=== PATIENT | male | born 1965 | race Caucasian/White ===

== ENCOUNTER 2018-03-23 21:51 | Inpatient (IN) | payer OTHER ==
--- NOTE | 2018-03-23 22:08 | ER Document Report ---
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 Significant other at bedside states the patient has not wanted to come into the emergency department the last few days despite her wishes but today he was agreeable. Patient states that he has had significant weight loss recently. Patient has had a cough as well. (JOSSY PIERCE) - Related Data Allergies/Adverse Reactions: gabapentin Allergy (Verified 03/24/18 00:15) Past Medical History - General Information source: Patient - Social History Smoking Status: Current Every Day Smoker Cigarette use (# per day): Yes Frequency of alcohol use: None Drug Abuse: None Lives with: Family Family History: Reviewed & Not Pertinent <JOSSY PIERCE - Last Filed: 03/24/18 03:26> Review of Systems - Review of Systems Constitutional: See HPI, Chills, Fever, Weight loss EENT: No symptoms reported Cardiovascular: No symptoms reported Respiratory: See HPI, Cough, Short of breath Gastrointestinal: See HPI, Nausea, Vomiting Genitourinary: No symptoms reported Male Genitourinary: No symptoms reported Musculoskeletal: No symptoms reported Skin: No symptoms reported Hematologic/Lymphatic: No symptoms reported Neurological/Psychological: No symptoms reported -: Yes All other systems reviewed and negative <JOSSY PIERCE - Last Filed: 03/24/18 03:26> Physical Exam <JOSSY PIERCE - Last Filed: 03/24/18 03:26> <GROVER GRANADOS - Last Filed: 03/24/18 04:17> - Vital signs Vitals: Pulse Ox 94 03/23/18 22:10 - Notes Notes: PHYSICAL EXAM GENERAL: Alert, interacts well. Cachectic. HEAD: Normocephalic, atraumatic. EYES: Pupils equal, round, and reactive to light. Extraocular movements intact. ENT: Oral mucosa moist, tongue midline. NECK: Full range of motion. Supple. Trachea midline. LUNGS: Decreased air movement on the left. Trace expiratory wheezing anteriorly bilaterally. HEART: Regular rate and rhythm. No murmurs, gallops, or rubs. ABDOMEN: LUQ tenderness with palpation. Non-distended. Bowel sounds present in all 4 quadrants. No guarding, rigidity, or rebound. EXTREMITIES: Moves all 4 extremities spontaneously. No edema, radial and dorsalis pedis pulses 2/4 bilaterally. No cyanosis. NEUROLOGICAL: Alert and oriented x3. Normal speech. PSYCH: Normal affect, normal mood. SKIN: Warm, dry, normal turgor. No rashes or lesions noted. (JOSSY PIERCE) Correction to scribe exam patient is diaphoretic. (GROVER GRANADOS) Course - Laboratory Result Diagrams: 03/23/18 22:37 03/23/18 22:37 <JOSSY PIERCE - Last Filed: 03/24/18 03:26> - Laboratory Result Diagrams: 03/23/18 22:37 03/23/18 22:37 <GROVER GRANADOS - Last Filed: 03/24/18 04:17> - Re-evaluation Re-evalutation: 03/24/18 03:48 Initial chest x-ray is ordered based off of his symptoms, given the loculated pleural effusion, the cachexia and the underlying opacity which was not further clarified I am concerned for malignancy so CT scan of the chest abdomen and pelvis was ordered given the abnormal chest x-ray, smoking history and the abdominal pain. CT scan of chest abdomen pelvis reveals enlarged lymph nodes in the prevascular space, precarinal and subcarinal space, there is a large loculated left pleural effusion similar to what is seen on the chest x-ray in addition there is nodularity and minor inflammation associated with the pleural flat anteriorly there is also pleural-based nodule in the left upper lobe anteriorly and some other areas of mixed soft tissue density and fluid density lesions in the liver. This is concerning for malignancy in addition to pneumonia. 03/24/18 03:49 CBC reveals marked leukocytosis of 20.9.5, hemoglobin is anemic at 12.3, platelets elevated 868, coags slightly prolonged with an INR of 1.08, patient is actually slightly alkalotic with a venous pH of 7.53, chemistries reveal low potassium at 2.8, I did order 80 mEq of potassium for this IV, magnesium is slightly elevated at 2.4, calcium slightly low at 8.1, AST, ALT and alk phos are all moderately elevated, urinalysis does not show any signs of infection. I discussed this patient with Dr. Kunz who asked that I consult with surgery and oncology to make certain they were agreeable to taking care of this patient here. Dr. Paredes stated that the pleural effusion could likely be drained by radiology but if radiology could not do it surgery could do it and then I discussed with Dr. Luis who agreed that this patient could be's kept here to get tissue biopsies and pathology. Patient will be admitted to Dr. Kunz service on the telemetry care unit. Patient is already been started on Levaquin. 03/24/18 03:51 Patient does have an increased oxygen requirement from baseline, he is on 2 L nasal cannula at this time and is satting 92%. (GROVER GRANADOS) - Vital Signs Vital signs: Temp Pulse Resp BP Pulse Ox 98.1 F 28 H 114/73 92 03/24/18 02:00 03/24/18 04:01 03/24/18 04:01 03/24/18 04:01 - Laboratory Laboratory results interpreted by me: 03/23/18 03/23/18 03/23/18 22:37 22:37 22:37 WBC 29.5 H RBC 4.12 L Hgb 12.3 L Hct 35.6 L RDW 14.1 H Plt Count 868 H Seg Neuts % (Manual) 87 H Band Neutrophils % 1 L Lymphocytes % (Manual) 10 L Monocytes % (Manual) 1 L Abs Neuts (Manual) 26.0 H VBG pH 7.53 H Potassium 2.8 L* Chloride 95 L Creatinine 0.43 L Glucose 128 H POC Glucose Calcium 8.1 L Magnesium AST 143 H ALT 80 H Alkaline Phosphatase 291 H Albumin 3.0 L Urine Protein Urine Bilirubin Urine Urobilinogen 03/23/18 03/24/18 03/24/18 22:37 00:06 00:07 WBC RBC Hgb Hct RDW Plt Count Seg Neuts % (Manual) Band Neutrophils % Lymphocytes % (Manual) Monocytes % (Manual) Abs Neuts (Manual) VBG pH Potassium Chloride Creatinine Glucose POC Glucose 116 H Calcium Magnesium 2.4 H AST ALT Alkaline Phosphatase Albumin Urine Protein 100 H Urine Bilirubin SMALL H Urine Urobilinogen 4.0 H - EKG Interpretation by Me Additional EKG results interpreted by me: 03/24/18 03:51 EKG shows sinus tachycardia at a rate of 108, normal axis, normal intervals, no ST segment elevations or depressions, there is some T wave lead III per my interpretation. (GROVER GRANADOS) Critical Care Note - Critical Care Note Total time excluding time spent on procedures (mins): 35 <GROVER GRANADOS - Last Filed: 03/24/18 04:17> Discharge <JOSSY PIERCE - Last Filed: 03/24/18 03:26> - Discharge Admitting Provider: [facility] Admitted: Telemetry <GROVER GRANADOS - Last Filed: 03/24/18 04:17> - Discharge Clinical Impression: Loculated pleural effusion, Mass of left lung, Acute respiratory failure with hypoxia Left lower lobe pneumonia Qualifiers: Pneumonia type: due to unspecified organism Qualified Code(s): J18.1 - Lobar pneumonia, unspecified organism Condition: Serious Disposition: ADMITTED INPATIENT Referrals: LOCAL,NO [NO LOCAL MD] - Follow up as needed Scribe Attestation: 03/24/18 04:17 I personally performed the services described in the documentation, reviewed and edited the documentation which was dictated to the scribe in my presence, and it accurately records my words and actions. (GROVER GRANADOS)
[2018-03-23 23:05] LABS: VENOUS BLOOD BASE EXCESS 8.4 mmol/L; VENOUS BLOOD HCO3 31.7 mmol/L (20-32); VENOUS BLOOD PCO2 39.1 mmHg (35-63); VENOUS BLOOD PH 7.53 (7.30-7.42)
[2018-03-23 23:08] LABS: HEMATOCRIT 35.6 % (37.9-51.0); HEMOGLOBIN 12.3 g/dL (13.5-17.0); INTERNATIONAL RATION (INR) 1.08; MEAN CORPUSCULAR HEMOGLOBIN 29.7 pg (27.0-33.4); MEAN CORPUSCULAR HGB CONC 34.4 g/dL (32.0-36.0); MEAN CORPUSCULAR VOLUME 86 fl (80-97); PLATELET COUNT 868 10^3/uL (150-450); PROTHROMBIN TIME 14.5 SEC (11.4-15.4); RED BLOOD COUNT 4.12 10^6/uL (4.35-5.55); RED CELL DISTRIBUTION WIDTH 14.1 % (11.5-14.0); WHITE BLOOD COUNT 29.5 10^3/uL (4.0-10.5)
[2018-03-23 23:25] LABS: ABSOLUTE LYMPHOCYTES# (MANUAL) 3.2 10^3/uL (0.5-4.7); ABSOLUTE MONOCYTES # (MANUAL) 0.3 10^3/uL (0.1-1.4); BAND NEUTROPHILS % (MANUAL) 1 % (3-5); BASOPHILS % (MANUAL) 0 % (0-2); EOSINOPHILS % (MANUAL) 0 % (0-6); LYMPHOCYTES % (MANUAL) 10 % (13-45); MONOCYTES % (MANUAL) 1 % (3-13); SEGMENTED NEUTROPHILS % (MAN) 87 % (42-78); TOTAL CELLS COUNTED 100
[2018-03-23 23:27] LABS: PLATELET CLUMPS PRESENT; PLATELET COMMENT INCREASED; PLATELET LARGE PRESENT; RBC MORPHOLOGY COMMENT NORMO-CYTIC/CHROMIC; TOXIC GRANULATION 2+
[2018-03-23 23:31] LABS: ALANINE AMINOTRANSFERASE 80 U/L (21-72); ALKALINE PHOSPHATASE 291 U/L (38-126); ANION GAP 14 (5-19); ASPARTATE AMINO TRANSFERASE 143 U/L (17-59); BILIRUBIN,DIRECT 0.4 mg/dL (0.0-0.4); BILIRUBIN,TOTAL 0.5 mg/dL (0.2-1.3); BLOOD UREA NITROGEN 13 mg/dL (7-20); CALCIUM 8.1 mg/dL (8.4-10.2); CARBON DIOXIDE 29 mmol/L (22-30); CHLORIDE 95 mmol/L (98-107); GLUCOSE 128 mg/dL (75-110); LIPASE 163.5 U/L (23-300); SODIUM 137.5 mmol/L (137-145)
[2018-03-23 23:40] LABS: POTASSIUM 2.8 mmol/L (3.6-5.0)
--- NOTE | 2018-03-23 23:48 | RADIOLOGY REPORT (SQ) ---
EXAM DESCRIPTION: XR CHEST 2 VIEWS COMPLETED DATE/TME: 03/23/2018 22:09 CLINICAL HISTORY: 52 years, Male, cough, fever, smoker, cachexia COMPARISON: None. NUMBER OF VIEWS: 2 TECHNIQUE: Frontal and lateral views of the chest LIMITATIONS: None. FINDINGS: The left heart border is obscured. Moderate to large left pleural effusion with adjacent airspace opacity. Underlying emphysema. Fullness in the left hilar region for which adenopathy is not excluded. Moderate-sized hiatal hernia. Poorly defined nodule in the left upper lobe measuring 1.25 cm. No pneumothorax. IMPRESSION: Moderate to large left pleural effusion with adjacent airspace opacity. Fullness in the left hilar region for which adenopathy is not excluded. Underlying emphysema. 1.25 cm nodule left upper lobe. Moderate-sized hiatal hernia. copyright 2010 [employer]- All Rights Reserved
[2018-03-24] MEDS: POTASSI CL 20 MEQ/50 ML RIDER 20 MEQ/50 ML RTUPB IV SCH ×2 (00:07→03:00)
[2018-03-24] MEDS ORDERED: LEVOFLOXACIN 750 MG/D5W RTU 750 MG/150 ML RTUPB IV ONE (00:26)
[2018-03-24 01:08] LABS: APPEARANCE,URINE SLIGHTLY-CLOUDY; BILIRUBIN,URINE SMALL (NEGATIVE); COLOR,URINE AMBER; GLUCOSE, URINE NEGATIVE (NEGATIVE); KETONES,URINE NEGATIVE (NEGATIVE); LEUKOCYTE ESTERASE,URINE NEGATIVE (NEGATIVE); NITRITE,URINE NEGATIVE (NEGATIVE); PROTEIN,URINE 100 mg/dL (NEGATIVE); URINE SPECIFIC GRAVITY 1.034
--- NOTE | 2018-03-24 01:45 | RADIOLOGY REPORT (SQ) ---
EXAM DESCRIPTION: CT CHEST WITH IV CONTRAST COMPLETED DATE/TME: 03/24/2018 00:06 CLINICAL HISTORY: 52 years, Male, weight loss, effusion, cough, concern for CA This exam was performed according to our departmental dose-optimization program which includes automated exposure control, adjustment of the mA and/or kVp according to patient size and/or use of iterative reconstruction technique where applicable. Compared to chest radiograph dated 03/23/2018. FINDINGS: Aorta is within normal limits. Mild mediastinal and borderline bilateral hilar lymphadenopathy. No significant pericardial effusion. There is a large multiloculated left pleural effusion noted. This correlates with chest radiographic appearance. This causes significant atelectatic changes of the left lower lobe. Extensive diffuse emphysematous changes. No suspicious right lung nodules. IMPRESSION: Large multiloculated left chest pleural effusion. This may be due to underlying malignancy. Left lower lobe atelectatic changes.
--- NOTE | 2018-03-24 03:06 | RADIOLOGY REPORT (SQ) ---
EXAM DESCRIPTION: CT chest, ABDOMEN PELVIS WITH IV CONTRAST COMPLETED DATE/TME: 03/24/2018 00:00 CLINICAL HISTORY: 52 years, Male, cachexia, LUQ pain, N/V, fevers COMPARISON: None. TECHNIQUE: 340 Images stored on PACS. All CT scanners at this facility use dose modulation, iterative reconstruction, and/or weight based dosing when appropriate to reduce radiation dose to as low as reasonably achievable (ALARA). [facility]: Dose Right [facility]: CareDose [facility]: Dose Right [facility]: Teradose 4D [facility]: [employer] LIMITATIONS: None. FINDINGS: CT chest: The mediastinal vasculature enhances normally. Enlarged lymph nodes in the AP window, prevascular space, precarinal and subcarinal spaces. The heart size is normal. There is a large loculated left pleural fluid collection. In addition, there are areas of soft tissue nodularity and minor inflammation associated with the pleural fat anteriorly. This partially volume averages with the underlying peritoneal fat in the left upper quadrant. Osseous structures of the thorax are grossly intact. No pneumothorax. Severe emphysematous changes are present. Pleural-based nodule in the anterior left upper lobe, with other areas of mixed soft tissue density and fluid density lesions in the lingula. The pleural-based lesion measures approximately 2.4 x 1.2 cm. Other lesions about the left heart border. Whether or not these are contiguous with the adjacent pleural effusion is difficult to ascertain. There is adjacent subsegmental atelectasis. Nonenlarged but conspicuous left hilar lymph nodes. No pneumothorax. Scarring in the lung apices. CT abdomen/pelvis: Diffuse fatty infiltrative change to the liver. Hepatomegaly. The spleen, adrenal glands, pancreas, kidneys are unremarkable. Nonenlarged but conspicuous posterior mediastinal and retrocrural lymph nodes. The gallbladder is present. Mild atheromatous changes of the abdominal aorta. No free air or free fluid in the abdomen. Osseous structures are grossly intact. IMPRESSION: Large loculated left pleural fluid collection with other areas of mixed cystic and soft tissue density in the lingula, as detailed above. There is a slightly more dense soft tissue nodule abutting the pleural surface in the anterior left upper lobe. Recommend tissue diagnosis. Contiguity of these primarily cystic changes with the pleural effusion is indeterminate. Nonenlarged but conspicuous left hilar lymph nodes. Mildly enlarged mediastinal lymph nodes. The largest is in the precarinal space measuring 1.5 x 1.5 cm. Nonenlarged but conspicuous posterior mediastinal and retrocrural lymph nodes. Severe emphysematous changes. TECHNICAL DOCUMENTATION: Quality ID # 436: Final reports with documentation of one or more dose reduction techniques (e.g., Automated exposure control, adjustment of the mA and/or kV according to patient size, use of iterative reconstruction technique) copyright 2011 [employer]- All Rights Reserved
[2018-03-24] MEDS ORDERED: ONDANSETRON HCL INJ/PF 4 MG/2 ML SDV IV ONE (03:38)
[2018-03-24] MEDS ORDERED: HYDROMORPHONE HCL INJ/PF 2 MG/ML AMPULE IV ONE (03:38)
[2018-03-24] MEDS ORDERED: MAG HYDROX/AL HYDROX/SIMETH SUSP 30 ML UDCUP PO PRN (04:42)
[2018-03-24] MEDS ORDERED: ONDANSETRON 4 MG TAB.RAPDIS PO PRN (04:42)
[2018-03-24] MEDS ORDERED: POTASSI CL 20 MEQ/D5-1/2NS 1L 1,000 ML IV PRN (04:42)
[2018-03-24] MEDS ORDERED: MAGNESIUM HYDROXIDE SUSP 30 ML UDCUP PO PRN (04:42)
[2018-03-24] MEDS ORDERED: ONDANSETRON HCL INJ/PF 4 MG/2 ML SDV IV PRN (04:42)
[2018-03-24] MEDS ORDERED: ACETAMINOPHEN 325 MG TABLET PO PRN (04:51)
[2018-03-24] MEDS ORDERED: ACETAMINOPHEN 650 MG SUPP.RECT PR PRN (04:51)
[2018-03-24] MEDS ORDERED: ALBUTEROL SULFATE 0.083% NEB 2.5 MG/3 ML AMPUL NEB PRN (04:51)
[2018-03-24] MEDS ORDERED: MORPHINE SULFATE 10 MG/ML INJ IV PRN ×2 (04:51)
[2018-03-24] MEDS ORDERED: POTASSI CL 20 MEQ/50 ML RIDER 20 MEQ/50 ML RTUPB IV SCH (04:59)
[2018-03-24] MEDS: MORPHINE SULFATE 10 MG/ML INJ IV PRN ×2 (05:44→14:12)
[2018-03-24] MEDS ORDERED: HEPARIN SOD (PORCINE) 5,000 UNIT/ML 1 ML SYRINGE SUBCUT SCH (06:00)
--- NOTE | 2018-03-24 06:05 | PDOC H&P ---
History of Present Illness Admission Date/PCP: 03/24/18 04:15 Patient complains of: Abdominal pain History of Present Illness: JUDY ZAVALA is a 52 year old male who presented to the emergency room with a 2 -week history of left upper quadrant abdominal pain accompanied by nausea, subjective fever, sweats without chills, vomiting, a nonproductive cough and severe anorexia with markedly decreased oral fluid intake. He admits that he was seen by a physician a few weeks ago but no chest x-ray was done and he was given a prescription for oral medication which did not seem to help. After that encounter he was reluctant to seek medical help again but his significant other was able to convince him to come to the emergency room today because of his continued decline. He denies hematemesis, melena, dyspnea, hemoptysis, rash , dyspepsia, palpitations and syncope. He admits to the associated symptoms of generalized weakness and chronic fatigue with mild to moderate malaise. In the emergency room he was found to have a white blood count of 29,500 and a large left pleural effusion on his chest x-ray which appears to be a loculated effusion on a chest CT. His abdominal CT was essentially noncontributory. There is significant concern for a possible malignant neoplastic etiology of a loculated pleural effusion of this nature. Patient will be admitted to the hospitalist service for further evaluation and treatment. Past Medical History Cardiac Medical History: Denies: Coronary Artery Disease, Hypertension Pulmonary Medical History: Reports: Chronic Obstructive Pulmonary Disease (COPD) Denies: Tuberculosis EENT Medical History: Reports: None Neurological Medical History: Denies: Hemorrhagic CVA, Ischemic CVA, Seizures Endocrine Medical History: Denies: Diabetes Mellitus Type 1, Diabetes Mellitus Type 2, Hyperthyroidism, Hypothyroidism Renal/ Medical History: Denies: Chronic Kidney Disease, Nephrolithiasis Malignancy Medical History: Reports: None GI Medical History: Denies: Cirrhosis, Hepatitis Musculoskeltal Medical History: Denies: Arthritis, Fibromyalgia Skin Medical History: Denies: Eczema, Psoriasis Psychiatric Medical History: Reports: Tobacco Dependency Denies: Alcohol Dependency, Substance Abuse Traumatic Medical History: Reports: None Hematology: Denies: Anemia, Bleeding Tendencies Infectious Medical History: Reports: None Past Surgical History Past Surgical History: Reports: None Social History Lives with: Family Smoking Status: Current Every Day Smoker - Advance Directive Resuscitation Status: Full Code Surrogate healthcare decision maker:: Significant other Family History Family History: None Parental Family History Reviewed: Yes Children Family History Reviewed: No Sibling(s) Family History Reviewed.: Yes Medication/Allergy Allergies/Adverse Reactions: gabapentin Allergy (Verified 03/24/18 00:15) Review of Systems Constitutional: PRESENT: as per HPI, anorexia, fatigue, fever(s), night sweats, weakness, weight loss. ABSENT: chills Eyes: ABSENT: visual disturbances, other - Ocular pain Ears: ABSENT: hearing changes, other - Ear pain Nose, Mouth, and Throat: ABSENT: mouth pain, sore throat Cardiovascular: ABSENT: chest pain, dyspnea on exertion, palpitations Respiratory: PRESENT: as per HPI, cough - Nonproductive. ABSENT: dyspnea Gastrointestinal: PRESENT: as per HPI, abdominal pain, nausea, vomiting. ABSENT : constipation, diarrhea, dysphagia, heartburn, hematemesis, melena Genitourinary: ABSENT: dysuria, hematuria Musculoskeletal: ABSENT: back pain, joint swelling Integumentary: ABSENT: pruritus, rash Neurological: ABSENT: confusion, convulsions, memory loss, syncope, vertigo Psychiatric: ABSENT: anxiety, depression Endocrine: ABSENT: cold intolerance, heat intolerance Hematologic/Lymphatic: ABSENT: easy bleeding, easy bruising Physical Exam Vital Signs: Temp Pulse Resp BP Pulse Ox 98.1 F 28 H 114/73 92 03/24/18 02:00 03/24/18 04:01 03/24/18 04:01 03/24/18 04:01 General appearance: PRESENT: no acute distress, cooperative, thin Head exam: PRESENT: atraumatic, normocephalic Eye exam: PRESENT: conjunctiva pink, EOMI Ear exam: PRESENT: normal external ear exam. ABSENT: drainage Mouth exam: PRESENT: dry mucosa, neck supple Neck exam: ABSENT: JVD, thyromegaly, tracheal deviation Respiratory exam: PRESENT: decreased breath sounds - Markedly decreased breath sounds at the left base and through the lower two thirds of the left lung in the mid axillary line. Dullness to percussion is noted in the same area highly suggestive of a pleural effusion or other density., symmetrical, unlabored. ABSENT: accessory muscle use, chest wall tenderness, retraction Cardiovascular exam: PRESENT: RRR, tachycardia. ABSENT: clicks, gallop, rubs Pulses: PRESENT: normal radial pulses, normal dorsalis pedis pul Vascular exam: PRESENT: normal capillary refill. ABSENT: pallor GI/Abdominal exam: PRESENT: normal bowel sounds, soft, tenderness - Minimal left upper quadrant tenderness to palpation Rectal exam: PRESENT: deferred Extremities exam: ABSENT: joint swelling, pedal edema Musculoskeletal exam: PRESENT: full ROM, normal inspection Neurological exam: PRESENT: alert, oriented to person, oriented to place, oriented to time, oriented to situation, CN II-XII grossly intact. ABSENT: motor sensory deficit Psychiatric exam: PRESENT: appropriate affect, normal mood Skin exam: PRESENT: dry, intact, warm. ABSENT: jaundice, rash, urticaria Results Impressions: Chest X-Ray 03/23/18 22:09 IMPRESSION: Moderate to large left pleural effusion with adjacent airspace opacity. Fullness in the left hilar region for which adenopathy is not excluded. Underlying emphysema. 1.25 cm nodule left upper lobe. Moderate-sized hiatal hernia. copyright 2010 [employer]- All Rights Reserved Abdomen/Pelvis CT 03/24/18 00:00 IMPRESSION: Large loculated left pleural fluid collection with other areas of mixed cystic and soft tissue density in the lingula, as detailed above. There is a slightly more dense soft tissue nodule abutting the pleural surface in the anterior left upper lobe. Recommend tissue diagnosis. Contiguity of these primarily cystic changes with the pleural effusion is indeterminate. Nonenlarged but conspicuous left hilar lymph nodes. Mildly enlarged mediastinal lymph nodes. The largest is in the precarinal space measuring 1.5 x 1.5 cm. Nonenlarged but conspicuous posterior mediastinal and retrocrural lymph nodes. Severe emphysematous changes. TECHNICAL DOCUMENTATION: Quality ID # 436: Final reports with documentation of one or more dose reduction techniques (e.g., Automated exposure control, adjustment of the mA and/or kV according to patient size, use of iterative reconstruction technique) copyright 2010 [employer]- All Rights Reserved Chest CT 03/24/18 00:06 IMPRESSION: Large multiloculated left chest pleural effusion. This may be due to underlying malignancy. Left lower lobe atelectatic changes. Assessment & Plan - Diagnosis (1) Loculated pleural effusion Is this a current diagnosis for this admission?: Yes Plan: Patient's loculated pleural effusion is probably secondary to an underlying pneumonia. Interventional radiology will be requested to perform a thoracentesis and obtain fluid for culture sensitivity and chemistry evaluation as well as a cell block prep to evaluate for neoplastic disease. Patient will be treated empirically with Levaquin antibiotic therapy and will also receive symptomatic care in terms of supplemental oxygen, antiemetics using Zofran, antipyretics using acetaminophen and analgesics using a sliding scale intravenous morphine sulfate regiment as needed. (2) Acute respiratory failure with hypoxia Is this a current diagnosis for this admission?: Yes Plan: Patient was noted to be hypoxic in the emergency room and he was started on supplemental oxygen via nasal cannula. This will be maintained throughout his hospital course as needed however it is anticipated that after his thoracentesis his respiratory status will improve nearer to his baseline. (3) Hypokalemia Is this a current diagnosis for this admission?: Yes Plan: Patient is noted to have significant hypokalemia with potassium of 2.8. This will be corrected by replacing the potassium with IV and eventually oral potassium as required. (4) Leukocytosis Is this a current diagnosis for this admission?: Yes Plan: The patient is noted to have a markedly leukocytosis and a marked thrombocytosis which are most likely secondary to his underlying pulmonary process. Thrombocytosis is particularly worrisome for an occult malignant neoplastic process. Further evaluation will be determined after the patient's thoracentesis and evaluations by pulmonology and hematology/oncology later today. - Time Time Spent: 50 to 70 Minutes Critical Time spent with patient: Less than 15 minutes Smoking Cessation Education: 3 to 10 minutes Medications reviewed and adjusted accordingly: Yes Anticipated discharge: Home - Inpatient Certification Based on my medical assessment, after consideration of the patient's comorbidities, presenting symptoms, or acuity I expect that the services needed warrant INPATIENT care.: Yes I certify that my determination is in accordance with my understanding of Medicare's requirements for reasonable and necessary INPATIENT services [42 CFR 412.3e].: Yes Medical Necessity: Failure to Improve With Outpatient Therapy, Need For IV Fluids, Need For Continuous Telemetry Monitoring, Need for Nebulizer Therapy and Monitoring of Response, Need for IV Antibiotics, Need for Surgery - Thoracentesis, Risk of Complication if Not Cared For in Hospital, Risk of Diagnosis Which Will Require Inpatient Eval/Care/Monitoring
[2018-03-24 06:20] LABS: CREATINE KINASE MB < 0.22 ng/mL (<4.55)
[2018-03-24 06:21] LABS: FREE T3 1.68 pg/mL (2.77-5.27); FREE T4 (FREE THYROXINE) 1.17 ng/dL (0.78-2.19)
[2018-03-24 06:34] LABS: THYROID STIMULATING HORMONE 5.51 uIU/mL (0.47-4.68)
[2018-03-24] MEDS ORDERED: IPRATROPIUM BROMIDE 0.02% NEB 0.5 MG/2.5 ML AMPUL NEB SCH (08:00)
[2018-03-24] MEDS ORDERED: LEVALBUTEROL HCL NEB 1.25 MG/3 ML AMPUL NEB SCH (08:00)
[2018-03-24] MEDS ORDERED: BUDESONIDE NEB 0.5 MG/2 ML AMPUL NEB SCH (08:00)
[2018-03-24 08:13] VITALS: BP 101/68
--- NOTE | 2018-03-24 08:35 | PDOC CONSULTATION ---
Consultation Consult Date: 03/24/18 Consult reason:: Hematology Oncology consultation was requested for patient with lung mass History of Present Illness Admission Date/PCP: 03/24/18 04:15 History of Present Illness: JUDY ZAVALA is a 52 year old male who is seen with his at his bedside. They report a longstanding history of back pain, at least until 2005. They had been seeing Dr. Jhaveri with pain management in [place], but they deny ever having any scans or work-up as to the cause of the pain. Over the past 2 weeks , pain has increased and he has had congestion and cough. He had been using OTC "flu" medications and was started on a "breathing machine" at home. But symptoms continued to worsen. He has been slowly loosing weight and about 1.5 weeks ago, he suddenly lost the desire to smoke. In the ED, he was found to have a lung mass with large loculated pleural effusion, highly suspicious for cancer. Plans are for lung biopsy today in interventional radiology. He states that his pain is a bit better with current pain medications. He is hungry, but is NPO for the procedure. Past Medical History Cardiac Medical History: Denies: Coronary Artery Disease, Hypertension Pulmonary Medical History: Reports: Chronic Obstructive Pulmonary Disease (COPD) Denies: Tuberculosis EENT Medical History: Reports: None Neurological Medical History: Denies: Hemorrhagic CVA, Ischemic CVA, Seizures Endocrine Medical History: Denies: Diabetes Mellitus Type 1, Diabetes Mellitus Type 2, Hyperthyroidism, Hypothyroidism Renal/ Medical History: Denies: Chronic Kidney Disease, Nephrolithiasis Malignancy Medical History: Reports: None GI Medical History: Denies: Cirrhosis, Hepatitis Musculoskeltal Medical History: Denies: Arthritis, Fibromyalgia Skin Medical History: Denies: Eczema, Psoriasis Psychiatric Medical History: Reports: Tobacco Dependency Denies: Alcohol Dependency, Depression, Substance Abuse Traumatic Medical History: Reports: None Hematology: Denies: Anemia, Bleeding Tendencies Infectious Medical History: Reports: None Past Surgical History Past Surgical History: Reports: Orthopedic Surgery - ORIF left knee after accident many years ago., Other - Dental extractions. 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 Hx Recreational Drug Use: No Hx Prescription Drug Abuse: No - Advance Directive Resuscitation Status: Full Code Family History Family History: None Parental Family History Reviewed: Yes - Parents both of natural causes, but he is unsure what. Children Family History Reviewed: Yes - 6 children. 1 in Sibling(s) Family History Reviewed.: No Medication/Allergy Allergies/Adverse Reactions: gabapentin Allergy (Verified 03/24/18 00:15) Review of Systems Constitutional: ABSENT: fever(s), headache(s), night sweats Eyes: ABSENT: visual disturbances Ears: ABSENT: hearing changes Nose, Mouth, and Throat: ABSENT: sore throat Cardiovascular: PRESENT: chest pain Respiratory: PRESENT: cough, dyspnea Gastrointestinal: ABSENT: constipation, diarrhea, nausea Genitourinary: ABSENT: difficulty urinating, dysuria Musculoskeletal: PRESENT: back pain Integumentary: ABSENT: rash Endocrine: PRESENT: other - weight loss. Physical Exam Vital Signs: Temp Pulse Resp BP Pulse Ox 98.7 F 122 H 18 101/68 95 03/24/18 08:12 03/24/18 08:12 03/24/18 08:12 03/24/18 08:12 03/24/18 08:12 Intake & Output 03/23/18 03/24/18 03/25/18 06:59 06:59 06:59 Intake Total 50 Balance 50 General appearance: PRESENT: no acute distress, thin Exam: Cachectic, 52 year old male. Head exam: PRESENT: normocephalic Eye exam: PRESENT: EOMI, PERRLA Mouth exam: PRESENT: dry mucosa Teeth exam: PRESENT: poor dentation Neck exam: ABSENT: lymphadenopathy, tenderness, thyromegaly Respiratory exam: PRESENT: decreased breath sounds - bilaterally. Poor inspiratory effort Cardiovascular exam: PRESENT: RRR. ABSENT: systolic murmur Vascular exam: ABSENT: pallor GI/Abdominal exam: PRESENT: soft. ABSENT: organolmegaly, tenderness Extremities exam: ABSENT: pedal edema Neurological exam: PRESENT: alert, awake Psychiatric exam: PRESENT: appropriate affect Focused psych exam: ABSENT: restlessness Skin exam: PRESENT: pallor Results Laboratory Results: 03/24/18 05:30 TSH 5.51 H Free T4 1.17 Free T3 pg/mL 1.68 L 03/24/18 03/24/18 05:30 05:30 Creatine Kinase < 20 L CK-MB (CK-2) < 0.22 Troponin I 0.030 Impressions: Chest X-Ray 03/23/18 22:09 IMPRESSION: Moderate to large left pleural effusion with adjacent airspace opacity. Fullness in the left hilar region for which adenopathy is not excluded. Underlying emphysema. 1.25 cm nodule left upper lobe. Moderate-sized hiatal hernia. copyright 2010 [employer]- All Rights Reserved Abdomen/Pelvis CT 03/24/18 00:00 IMPRESSION: Large loculated left pleural fluid collection with other areas of mixed cystic and soft tissue density in the lingula, as detailed above. There is a slightly more dense soft tissue nodule abutting the pleural surface in the anterior left upper lobe. Recommend tissue diagnosis. Contiguity of these primarily cystic changes with the pleural effusion is indeterminate. Nonenlarged but conspicuous left hilar lymph nodes. Mildly enlarged mediastinal lymph nodes. The largest is in the precarinal space measuring 1.5 x 1.5 cm. Nonenlarged but conspicuous posterior mediastinal and retrocrural lymph nodes. Severe emphysematous changes. TECHNICAL DOCUMENTATION: Quality ID # 436: Final reports with documentation of one or more dose reduction techniques (e.g., Automated exposure control, adjustment of the mA and/or kV according to patient size, use of iterative reconstruction technique) copyright 2010 [employer]- All Rights Reserved Chest CT 03/24/18 00:06 IMPRESSION: Large multiloculated left chest pleural effusion. This may be due to underlying malignancy. Left lower lobe atelectatic changes. Status: Image reviewed by me Assessment & Plan - Diagnosis (1) Mass of left lung Is this a current diagnosis for this admission?: Yes Plan: I discussed this with him. He understands that unsure exactly what this is. Plan for biopsy JOSEFINA. (2) Loculated pleural effusion Is this a current diagnosis for this admission?: Yes Plan: Thoracentesis if possible at time of biopsy. Will need cytology sent on both specimens. (3) Pain Is this a current diagnosis for this admission?: Yes Plan: Continue pain medications. Consider Long acting opiod based on PRN use over the next 24 hours. - Plan Summary Plan Summary: After further discussion with Dr. Waddell, she does not feel comfortable biopsing the patient here and recommends transfer to tertiary care center. I have discussed also with hospitalist. They will try to transfer him for further work-up.
[2018-03-24] MEDS ORDERED: FAMOTIDINE 20 MG TABLET PO SCH (10:00)
[2018-03-24] MEDS ORDERED: DOCUSATE SODIUM 100 MG CAPSULE PO SCH (10:00)
[2018-03-24] MEDS ORDERED: LEVOFLOXACIN 750 MG TABLET PO SCH (10:00)
--- NOTE | 2018-03-24 10:02 | EKG REPORT ---
SEVERITY:- BORDERLINE ECG - SINUS TACHYCARDIA NONSPECIFIC T ABNORMALITIES, INFERIOR LEADS : Confirmed by: Mariana Polk MD 24-Mar-2018 10:02:16
[2018-03-24 12:10] LABS: CREATINE KINASE MB 0.26 ng/mL (<4.55)
[2018-03-24 12:14] LABS: TROPONIN I 0.026 ng/mL
--- NOTE | 2018-03-24 12:58 | PDOC CONSULTATION ---
Consultation Consult Date: 03/24/18 Attending physician:: ROCKY PETTY Consult reason:: L lung mass;L pleural effusion History of Present Illness Admission Date/PCP: 03/24/18 04:15 History of Present Illness: JUDY ZAVALA is a 52 year old male presented for increasing shortness of breath is just this is been preceded by 40-50 pound weight loss and increasing pain requiring narcotics he smoked 1/2 packs a day for approximately 45 years until 2 weeks ago he is become cachectic as well as a anorexic on presentation displayed a pleural effusion on the left side that was loculated as well as a left upper lobe pleural-based mass 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 Past Medical History Cardiac Medical History: Denies: Coronary Artery Disease, Hypertension Pulmonary Medical History: Reports: Chronic Obstructive Pulmonary Disease (COPD) Denies: Tuberculosis EENT Medical History: Reports: None Neurological Medical History: Denies: Hemorrhagic CVA, Ischemic CVA, Seizures Endocrine Medical History: Denies: Diabetes Mellitus Type 1, Diabetes Mellitus Type 2, Hyperthyroidism, Hypothyroidism Renal/ Medical History: Denies: Chronic Kidney Disease, Nephrolithiasis Malignancy Medical History: Reports: None GI Medical History: Denies: Cirrhosis, Hepatitis Musculoskeltal Medical History: Denies: Arthritis, Fibromyalgia Skin Medical History: Denies: Eczema, Psoriasis Psychiatric Medical History: Reports: Tobacco Dependency Denies: Alcohol Dependency, Depression, Substance Abuse Traumatic Medical History: Reports: None Hematology: Denies: Anemia, Bleeding Tendencies Infectious Medical History: Reports: None Past Surgical History Past Surgical History: Reports: None, Orthopedic Surgery - ORIF left knee after accident many years ago., Other - Dental extractions. Social History Lives with: Spouse/Significant other Smoking Status: Former Smoker Cigarettes Packs Per Day: 2 Number of Years Smokin Last Time Smoked: 1.5 weeks ago Frequency of Alcohol Use: None Hx Recreational Drug Use: No Hx Prescription Drug Abuse: No Do you have pets?: Yes Have you had any respiratory illnesses as a child?: No Have you been exposed to any sick contacts recently?: No Have you had any recent respiratory illnesses?: No Have you travelled outside of [place] in the past 12 months?: No - Advance Directive Resuscitation Status: Full Code Family History Family History: COPD Parental Family History Reviewed: Yes Children Family History Reviewed: Yes Sibling(s) Family History Reviewed.: Yes Medication/Allergy Home Medications: Albuterol Sulfate [Proair HFA Inhalation Aerosol 8.5 gm MDI] 2 puff IH QID 03/24 Diclofenac Sodium 75 mg PO BID 03/24/18 Gabapentin [Neurontin 300 mg Capsule] 300 mg PO Q8 03/24/18 Oxycodone HCl [Oxycodone HCl 10 MG Tablet] 10 mg PO BIDP PRN 03/24/18 Tizanidine HCl [Zanaflex 4 mg Tablet] 2 mg PO BID 03/24/18 Tizanidine HCl [Zanaflex 4 mg Tablet] 2 mg PO QHS 03/24/18 Allergies/Adverse Reactions: gabapentin Allergy (Verified 03/24/18 00:15) Review of Systems Constitutional: PRESENT: anorexia, fatigue, weakness, weight loss Eyes: ABSENT: visual disturbances Ears: ABSENT: hearing changes Nose, Mouth, and Throat: ABSENT: mouth pain, sore throat Cardiovascular: PRESENT: chest pain. ABSENT: dyspnea on exertion, edema, palpitations Respiratory: PRESENT: cough, dyspnea. ABSENT: hemoptysis Gastrointestinal: ABSENT: coffee ground emesis, heartburn, hematochezia, melena Genitourinary: ABSENT: dysuria, hematuria Integumentary: ABSENT: lesions, pruritus Neurological: ABSENT: abnormal gait, confusion, focal weakness, frequent falls, lack of coordination, memory loss Psychiatric: ABSENT: hallucinations, homidical ideation, suicidal ideation Endocrine: ABSENT: cold intolerance, heat intolerance, polydipsia, polyuria Hematologic/Lymphatic: ABSENT: lymphadenopathy Allergic/Immunologic: ABSENT: seasonal rhinorrhea Physical Exam Vital Signs: Temp Pulse Resp BP Pulse Ox 98.7 F 122 H 18 101/68 95 03/24/18 08:12 03/24/18 08:12 03/24/18 08:12 03/24/18 08:12 03/24/18 08:12 Intake & Output 03/23/18 03/24/18 03/25/18 06:59 06:59 06:59 Intake Total 50 Balance 50 General appearance: PRESENT: no acute distress, cooperative, disheveled, thin Head exam: PRESENT: atraumatic, normocephalic Eye exam: PRESENT: conjunctiva pale, EOMI. ABSENT: nystagmus, scleral icterus Mouth exam: PRESENT: dry mucosa, neck supple, tongue midline Neck exam: ABSENT: carotid bruit, JVD, lymphadenopathy, thyromegaly, tracheal deviation, tracheostomy Respiratory exam: PRESENT: decreased breath sounds, prolonged expiratory phas, rhonchi, symmetrical - L sided egophany, unlabored. ABSENT: retraction, stridor Cardiovascular exam: PRESENT: RRR, +S1, tachycardia Pulses: PRESENT: normal radial pulses GI/Abdominal exam: PRESENT: soft. ABSENT: tenderness Extremities exam: ABSENT: calf tenderness, clubbing, joint swelling, pedal edema Neurological exam: PRESENT: alert, awake Psychiatric exam: PRESENT: appropriate affect Skin exam: PRESENT: dry, warm Results Laboratory Results: 03/24/18 05:30 TSH 5.51 H Free T4 1.17 Free T3 pg/mL 1.68 L 03/24/18 03/24/18 05:30 05:30 Creatine Kinase < 20 L CK-MB (CK-2) < 0.22 Troponin I 0.030 Impressions: Chest X-Ray 03/23/18 22:09 IMPRESSION: Moderate to large left pleural effusion with adjacent airspace opacity. Fullness in the left hilar region for which adenopathy is not excluded. Underlying emphysema. 1.25 cm nodule left upper lobe. Moderate-sized hiatal hernia. copyright 2010 [employer]- All Rights Reserved Abdomen/Pelvis CT 03/24/18 00:00 IMPRESSION: Large loculated left pleural fluid collection with other areas of mixed cystic and soft tissue density in the lingula, as detailed above. There is a slightly more dense soft tissue nodule abutting the pleural surface in the anterior left upper lobe. Recommend tissue diagnosis. Contiguity of these primarily cystic changes with the pleural effusion is indeterminate. Nonenlarged but conspicuous left hilar lymph nodes. Mildly enlarged mediastinal lymph nodes. The largest is in the precarinal space measuring 1.5 x 1.5 cm. Nonenlarged but conspicuous posterior mediastinal and retrocrural lymph nodes. Severe emphysematous changes. TECHNICAL DOCUMENTATION: Quality ID # 436: Final reports with documentation of one or more dose reduction techniques (e.g., Automated exposure control, adjustment of the mA and/or kV according to patient size, use of iterative reconstruction technique) copyright 2010 [employer]- All Rights Reserved Chest CT 03/24/18 00:06 IMPRESSION: Large multiloculated left chest pleural effusion. This may be due to underlying malignancy. Left lower lobe atelectatic changes. Assessment & Plan - Diagnosis (1) Acute respiratory failure with hypoxia Is this a current diagnosis for this admission?: Yes Plan: Supplemental oxygen and bronchodilator therapy (2) Loculated pleural effusion Is this a current diagnosis for this admission?: Yes Plan: Discussed with surgery we have arranged for patient to go to [facility] [place] to be on the service of thoracic surgery for the mass as well as will complicated loculated pleural effusion concur with their assessments and plan (3) Mass of left lung Is this a current diagnosis for this admission?: Yes Plan: Biopsy per thoracic surgery
--- NOTE | 2018-03-24 14:59 | PDOC TRANSFER SUMMARY ---
General Admission Date/PCP: 03/24/18 04:15 Admission Date: 03/24/18 Transfer Date: 03/24/18 Accepting Facility: [facility] Accepting Physician: Brendan Erazo MD Resuscitation Status: Full Code - Transfer Diagnosis (1) Acute respiratory failure with hypoxia Is this a current diagnosis for this admission?: Yes (2) Hypokalemia Is this a current diagnosis for this admission?: Yes (3) Left lower lobe pneumonia Is this a current diagnosis for this admission?: Yes (4) Leukocytosis Is this a current diagnosis for this admission?: Yes (5) Loculated pleural effusion Is this a current diagnosis for this admission?: Yes (6) Mass of left lung Is this a current diagnosis for this admission?: Yes - Transfer Medications Home Medications: Albuterol Sulfate [Proair HFA Inhalation Aerosol 8.5 gm MDI] 2 puff IH QID 03/24 Diclofenac Sodium 75 mg PO BID 03/24/18 Gabapentin [Neurontin 300 mg Capsule] 300 mg PO Q8 03/24/18 Oxycodone HCl [Oxycodone HCl 10 MG Tablet] 10 mg PO BIDP PRN 03/24/18 Tizanidine HCl [Zanaflex 4 mg Tablet] 2 mg PO BID 03/24/18 Tizanidine HCl [Zanaflex 4 mg Tablet] 2 mg PO QHS 03/24/18 Transfer Medications: Current Medications Acetaminophen (Tylenol 325 Mg Tablet) 650 mg PO Q4HP PRN PRN Reason: For headache, pain or fever Stop: 04/23/18 04:50 Acetaminophen (Tylenol 650 Mg Supp) 650 mg UT Q4HP PRN PRN Reason: For headache, pain or fever Stop: 04/23/18 04:50 Al Hydrox/Mg Hydrox/Simethicone (Maalox Plus Susp 30 Udcup) 30 ml PO Q6HP PRN PRN Reason: HEARTBURN Stop: 04/23/18 04:41 Albuterol (Ventolin 0.083% Neb 2.5 Mg/3 Ml Ampul) 2.5 mg NEB RTQ1HP PRN PRN Reason: SHORTNESS OF BREATH Stop: 04/23/18 04:50 Budesonide (Pulmicort Neb 0.5 Mg/2 Ml Ampul) 0.5 mg NEB RTQ12 [facility] Stop: 04/23/18 07:59 Last Admin: 12/14/18 09:14 Dose: 0.5 mg Docusate Sodium (Colace 100 Mg Capsule) 100 mg PO BID [facility] Stop: 04/23/18 09:59 Famotidine (Pepcid 20 Mg Tablet) 20 mg PO Q12 [facility] Stop: 04/23/18 09:59 Heparin Sodium (Porcine) (Heparin Inj 5,000 Units/Ml 1 Ml Syringe) 5,000 unit SUBCUT Q8 [facility] Stop: 04/23/18 05:59 Last Admin: 03/24/18 10:18 Dose: Not Given Potassium Chloride/Dextrose/Sod Cl (D5-1/2ns 1000 Ml/Kcl 20 Meq Premix Bag) 1, 000 mls @ 167 mls/hr IV CONTINUOUS PRN PRN Reason: THIS MED IS NOT "PRN" Stop: 04/23/18 04:41 Last Admin: 03/24/18 08:10 Dose: 167 mls/hr Ipratropium [place] (Atrovent 0.02% Neb 0.5 Mg/2.5 Ml Ampul) 0.5 mg NEB RTQ8 [facility] Stop: 04/23/18 07:59 Last Admin: 03/24/18 09:14 Dose: 0.5 mg Levalbuterol HCl (Xopenex Neb 1.25 Mg/3 Ml Ampul) 1.25 mg NEB RTQ8 [facility] Stop: 04/23/18 07:59 Last Admin: 03/24/18 09:14 Dose: 1.25 mg Levofloxacin (Levaquin 750 Mg Tablet) 750 mg PO DAILY [facility] Stop: 03/31/18 09:59 Magnesium Hydroxide (Milk Of Magnesia 30 Ml Udcup) 30 ml PO HSP PRN PRN Reason: FOR CONSTIPATION Stop: 04/23/18 04:41 Morphine Sulfate (Morphine 10 Mg/Ml Inj) 2 mg IV Q2HP PRN PRN Reason: FOR PAIN SCALE 1-2 Stop: 03/31/18 04:50 Last Admin: 03/24/18 08:11 Dose: 2 mg Morphine Sulfate (Morphine 10 Mg/Ml Inj) 3 mg IV Q2HP PRN PRN Reason: FOR PAIN SCALE 3-4 Stop: 03/31/18 04:50 Last Admin: 03/24/18 11:58 Dose: 3 mg Morphine Sulfate (Morphine 10 Mg/Ml Inj) 4 mg IV Q2HP PRN PRN Reason: PAIN SCALE OF 5 Stop: 03/31/18 04:50 Last Admin: 03/24/18 14:12 Dose: 4 mg Ondansetron HCl (Zofran Inj/Pf 4 Mg/2 Ml Sdv) 4 mg IV Q4HP PRN PRN Reason: FOR NAUSEA/VOMITING Stop: 04/23/18 04:41 Ondansetron HCl (Zofran Odt 4 Mg Tablet) 4 mg PO Q4HP PRN PRN Reason: FOR NAUSEA/VOMITING Stop: 04/23/18 04:41 Sodium Chloride (Saline Flush 2.5 Ml Monoject Prefil Syrin) 2.5 ml IV Q8 [facility] Stop: 04/23/18 05:59 Last Admin: 03/24/18 10:31 Dose: Not Given - Allergies Allergies/Adverse Reactions: gabapentin Allergy (Verified 03/24/18 00:15) - Diet/Activity Discharge Diet: Other (Comments) - npo Discharge Activity: Bedrest Hospital Course Hospital Course: Patient is 52 years old male who presented to the emergency room with a 2-week history of left upper quadrant abdominal pain accompanied by nausea, subjective fever, sweats without chills, vomiting, a nonproductive cough and severe anorexia with markedly decreased oral fluid intake. He admits that he was seen by a physician a few weeks ago but no chest x-ray was done and he was given a prescription for oral medication which did not seem to help. After that encounter he was reluctant to seek medical help again but his significant other was able to convince him to come to the emergency room today because of his continued decline. He denies hematemesis, melena, dyspnea, hemoptysis, rash, dyspepsia, palpitations and syncope. He admits to the associated symptoms of generalized weakness and chronic fatigue with mild to moderate malaise. In the emergency room he was found to have a white blood count of 29,500 and a large left pleural effusion on his chest x-ray which appears to be a loculated effusion on a chest CT. His abdominal CT was essentially noncontributory. There is significant concern for a possible malignant neoplastic etiology of a loculated pleural effusion of this nature. Patient will be admitted to the hospitalist service for further evaluation and treatment. Patient was admitted to the hospitalist. Patient received consultation from oncology, surgery, pulmonology and interventional radiology. Consensus whether the patient will require cardiothoracic surgery evaluation and biopsy. Patient will be transferred to [facility] [place] for the expertise of cardiac surgery. Physical Exam Vital Signs: Temp Pulse Resp BP Pulse Ox 98.7 F 111 H 19 101/68 98 03/24/18 08:12 03/24/18 09:15 03/24/18 09:15 03/24/18 08:12 03/24/18 09:15 Intake & Output 03/23/18 03/24/18 03/25/18 06:59 06:59 06:59 Intake Total 50 Balance 50 General appearance: PRESENT: no acute distress, thin Head exam: PRESENT: atraumatic Eye exam: PRESENT: EOMI Neck exam: ABSENT: meningismus Respiratory exam: PRESENT: decreased breath sounds, rhonchi. ABSENT: accessory muscle use Cardiovascular exam: PRESENT: RRR GI/Abdominal exam: PRESENT: soft. ABSENT: ascites Rectal exam: PRESENT: deferred Neurological exam: PRESENT: alert, awake, oriented to person, oriented to place , oriented to time, oriented to situation Results Laboratory Results: 03/24/18 05:30 TSH 5.51 H Free T4 1.17 Free T3 pg/mL 1.68 L 03/24/18 03/24/18 03/24/18 05:30 05:30 11:07 Creatine Kinase < 20 L < 20 L CK-MB (CK-2) < 0.22 Troponin I 0.030 03/24/18 11:07 Creatine Kinase CK-MB (CK-2) 0.26 Troponin I 0.026 Impressions: Chest X-Ray 03/23/18 22:09 IMPRESSION: Moderate to large left pleural effusion with adjacent airspace opacity. Fullness in the left hilar region for which adenopathy is not excluded. Underlying emphysema. 1.25 cm nodule left upper lobe. Moderate-sized hiatal hernia. copyright 2010 [employer]- All Rights Reserved Abdomen/Pelvis CT 03/24/18 00:00 IMPRESSION: Large loculated left pleural fluid collection with other areas of mixed cystic and soft tissue density in the lingula, as detailed above. There is a slightly more dense soft tissue nodule abutting the pleural surface in the anterior left upper lobe. Recommend tissue diagnosis. Contiguity of these primarily cystic changes with the pleural effusion is indeterminate. Nonenlarged but conspicuous left hilar lymph nodes. Mildly enlarged mediastinal lymph nodes. The largest is in the precarinal space measuring 1.5 x 1.5 cm. Nonenlarged but conspicuous posterior mediastinal and retrocrural lymph nodes. Severe emphysematous changes. TECHNICAL DOCUMENTATION: Quality ID # 436: Final reports with documentation of one or more dose reduction techniques (e.g., Automated exposure control, adjustment of the mA and/or kV according to patient size, use of iterative reconstruction technique) copyright 2011 [employer]- All Rights Reserved Chest CT 03/24/18 00:06 IMPRESSION: Large multiloculated left chest pleural effusion. This may be due to underlying malignancy. Left lower lobe atelectatic changes.
--- NOTE | 2018-03-24 15:05 | PDOC CONSULTATION ---
Consultation Attending physician:: KARLENE COLLINS Consult reason:: Loculated left pleural effusion History of Present Illness Admission Date/PCP: 03/24/18 04:15 Patient complains of: Shortness of breath left chest wall pain History of Present Illness: JUDY ZAVALA is a 52 year white male who presents to the emergency department, via ground rescue, complaining of left upper chest wall pain, shortness of breath, failure to thrive, fever. He was evaluated in the emergency department where he was found to have tachypnea, decreased breath sounds left chest, and a leukocytosis of 29,000. Chest x-ray showed left pleural effusion. CT scan of the abdomen and chest revealed a multiloculated left pleural effusion, with slight mediastinal retraction to the left side, scattered mediastinal adenopathy and suggestion of based soft tissue masses concerning for malignancy. 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 Dr. Wheeler was consulted for insertion of the left thoracostomy tube. Patient has a very strong history of cigarette smoking Past Medical History Cardiac Medical History: Denies: Coronary Artery Disease, Hypertension Pulmonary Medical History: Reports: Chronic Obstructive Pulmonary Disease (COPD) Denies: Tuberculosis EENT Medical History: Reports: None Neurological Medical History: Denies: Hemorrhagic CVA, Ischemic CVA, Seizures Endocrine Medical History: Denies: Diabetes Mellitus Type 1, Diabetes Mellitus Type 2, Hyperthyroidism, Hypothyroidism Renal/ Medical History: Denies: Chronic Kidney Disease, Nephrolithiasis Malignancy Medical History: Reports: None GI Medical History: Denies: Cirrhosis, Hepatitis Musculoskeltal Medical History: Denies: Arthritis, Fibromyalgia Skin Medical History: Denies: Eczema, Psoriasis Psychiatric Medical History: Reports: Tobacco Dependency Denies: Alcohol Dependency, Depression, Substance Abuse Traumatic Medical History: Reports: None Hematology: Denies: Anemia, Bleeding Tendencies Infectious Medical History: Reports: None Past Surgical History Past Surgical History: Reports: None, Orthopedic Surgery - ORIF left knee after accident many years ago., Other - Dental extractions. Social History Lives with: Spouse/Significant other Smoking Status: Former Smoker Cigarettes Packs Per Day: 2 Number of Years Smokin Last Time Smoked: 1.5 weeks ago Frequency of Alcohol Use: None Hx Recreational Drug Use: No Hx Prescription Drug Abuse: No - Advance Directive Resuscitation Status: Full Code Family History Family History: COPD Parental Family History Reviewed: Yes Children Family History Reviewed: Yes Sibling(s) Family History Reviewed.: Yes Medication/Allergy Home Medications: Acetaminophen [Tylenol 650 mg Supp] 650 mg AR Q4HP PRN supp.rect 03/24/18 Albuterol Sulfate [Proair HFA Inhalation Aerosol 8.5 gm MDI] 2 puff IH QID 03/24 Albuterol Sulfate [Ventolin 0.083% Neb 2.5 mg/3 mL Ampul] 2.5 mg NEB RTQ1HP PRN vial.neb 03/24/18 Budesonide [Pulmicort Neb 0.5 mg/2 ml Ampul] 0.5 mg NEB RTQ12 ampul.neb Diclofenac Sodium 75 mg PO BID 03/24/18 Docusate Sodium [Colace 100 mg Capsule] 100 mg PO BID capsule 03/24/18 Famotidine [Pepcid 20 mg Tablet] 20 mg PO Q12 tablet 03/24/18 Gabapentin [Neurontin 300 mg Capsule] 300 mg PO Q8 03/24/18 Heparin Sodium,Porcine [Heparin Inj 5,000 Units/ml 1 ml Syringe] 5,000 unit SUBCUT Q8 syringe 03/24/18 Ipratropium Herman [Atrovent 0.02% Neb 0.5 mg/2.5 ml Ampul] 0.5 mg NEB RTQ8 vial.neb 03/24/18 Levalbuterol HCl [Xopenex Neb 1.25 mg/3 ml Ampul] 1.25 mg NEB RTQ8 vial.neb Levofloxacin [Levaquin 750 mg Tablet] 750 mg PO DAILY tablet 03/24/18 Mag Hydrox/Al Hydrox/Simeth [Maalox Plus Susp 30 Udcup] 30 ml PO Q6HP PRN udc 03/24/18 Magnesium Hydroxide [Milk of Magnesia 30 ml Udcup] 30 ml PO HSP PRN udc Morphine Sulfate [Morphine 10 mg/ml Inj] 2 mg IV Q2HP PRN vial 03/24/18 Morphine Sulfate [Morphine 10 mg/ml Inj] 3 mg IV Q2HP PRN vial 03/24/18 Morphine Sulfate [Morphine 10 mg/ml Inj] 4 mg IV Q2HP PRN vial 03/24/18 Normal Saline [Saline Flush 2.5 ml Monoject Prefil Syrin] 2.5 ml IV Q8 disp.syrin 03/24/18 Ondansetron HCl/Pf [Zofran Inj/Pf 4 mg/2 ml Sdv] 4 mg IV Q4HP PRN vial Ondansetron [Zofran Odt 4 mg Tablet] 4 mg PO Q4HP PRN tab.rapdis 03/24/18 Oxycodone HCl [Oxycodone HCl 10 MG Tablet] 10 mg PO BIDP PRN 03/24/18 Tizanidine HCl [Zanaflex 4 mg Tablet] 2 mg PO BID 03/24/18 Tizanidine HCl [Zanaflex 4 mg Tablet] 2 mg PO QHS 03/24/18 Allergies/Adverse Reactions: gabapentin Allergy (Verified 03/24/18 00:15) Review of Systems Constitutional: PRESENT: as per HPI Eyes: ABSENT: visual disturbances Ears: ABSENT: hearing changes Cardiovascular: ABSENT: chest pain, dyspnea on exertion, edema, orthropnea, palpitations Respiratory: PRESENT: as per HPI Integumentary: ABSENT: rash, wounds Neurological: ABSENT: abnormal gait, abnormal speech, confusion, dizziness, focal weakness, syncope Physical Exam Vital Signs: Temp Pulse Resp BP Pulse Ox 98.7 F 111 H 19 101/68 98 03/24/18 08:12 03/24/18 09:15 03/24/18 09:15 03/24/18 08:12 03/24/18 09:15 Intake & Output 03/23/18 03/24/18 03/25/18 06:59 06:59 06:59 Intake Total 50 Balance 50 General appearance: PRESENT: mild distress Head exam: PRESENT: normocephalic Eye exam: PRESENT: EOMI Mouth exam: PRESENT: dry mucosa Neck exam: PRESENT: full ROM Respiratory exam: PRESENT: other - Marked decreased breath sounds left chest; no subcutaneous emphysema; chronic wasting of the musculoskeletal system GI/Abdominal exam: PRESENT: soft Rectal exam: PRESENT: deferred Musculoskeletal exam: PRESENT: full ROM Neurological exam: PRESENT: alert, awake, oriented to person, oriented to place , oriented to time, oriented to situation Results Laboratory Results: 03/24/18 05:30 TSH 5.51 H Free T4 1.17 Free T3 pg/mL 1.68 L 03/24/18 03/24/18 03/24/18 05:30 05:30 11:07 Creatine Kinase < 20 L < 20 L CK-MB (CK-2) < 0.22 Troponin I 0.030 03/24/18 11:07 Creatine Kinase CK-MB (CK-2) 0.26 Troponin I 0.026 Impressions: Chest X-Ray 03/23/18 22:09 IMPRESSION: Moderate to large left pleural effusion with adjacent airspace opacity. Fullness in the left hilar region for which adenopathy is not excluded. Underlying emphysema. 1.25 cm nodule left upper lobe. Moderate-sized hiatal hernia. copyright 2010 [employer]- All Rights Reserved Abdomen/Pelvis CT 03/24/18 00:00 IMPRESSION: Large loculated left pleural fluid collection with other areas of mixed cystic and soft tissue density in the lingula, as detailed above. There is a slightly more dense soft tissue nodule abutting the pleural surface in the anterior left upper lobe. Recommend tissue diagnosis. Contiguity of these primarily cystic changes with the pleural effusion is indeterminate. Nonenlarged but conspicuous left hilar lymph nodes. Mildly enlarged mediastinal lymph nodes. The largest is in the precarinal space measuring 1.5 x 1.5 cm. Nonenlarged but conspicuous posterior mediastinal and retrocrural lymph nodes. Severe emphysematous changes. TECHNICAL DOCUMENTATION: Quality ID # 436: Final reports with documentation of one or more dose reduction techniques (e.g., Automated exposure control, adjustment of the mA and/or kV according to patient size, use of iterative reconstruction technique) copyright 2010 [employer]- All Rights Reserved Chest CT 03/24/18 00:06 IMPRESSION: Large multiloculated left chest pleural effusion. This may be due to underlying malignancy. Left lower lobe atelectatic changes. General surgeon's impression: Respiratory distress secondary to acute decompensation of the left thoracic cavity secondary to multiloculated effusion , pleural-based lesions and mediastinal adenopathy all highly suspicious from ligaments a in the setting of a cachectic male, heavy smoker recommendations: 1. I reviewed the imaging studies with Dr. Waddell, radiologist. Given the patient's multiple comorbidities including smoking abuse, COPD, and malnutrition , as well as the need for definitive diagnosis, my suggestion is that the patient be transferred to a tertiary care level institution. 2. I spoke personally with Dr. Brendan Banda, pulmonary surgeon and [facility] who agrees with indication for transfer to [facility] for definitive management of left chest pathology which may include VATS procedure, thoracostomy tube, possible Pleurx catheter, tissue biopsies etc. 3. I spoke with Dr. Collins as well as primary care hospitalist about my recommendations. We will facilitate transfer; nursing staff, patient and patient family informed of the plan Assessment & Plan - Time Time Spent: 30 to 50 Minutes Smoking Cessation Education: over 10 minutes Medications reviewed and adjusted accordingly: Yes Anticipated discharge: Home - Inpatient Certification Based on my medical assessment, after consideration of the patient's comorbidities, presenting symptoms, or acuity I expect that the services needed warrant INPATIENT care.: Yes I certify that my determination is in accordance with my understanding of Medicare's requirements for reasonable and necessary INPATIENT services [42 CFR 412.3e].: Yes
== END 2018-03-24 15:30 | disposition short-term general hospital (02) | DRG 189 ==
LOC: ER 21:51 → EH 03-24 04:15 → 3W 03-24 06:33
PROVIDERS: ADMIT Emergency Medicine; ATTEND Emergency Medicine
DX: J96.01 Acute respiratory failure with hypoxia (principal); J18.1 Lobar pneumonia, unspecified organism; J90 Pleural effusion, not elsewhere classified; R64 Cachexia; E87.6 Hypokalemia; R91.8 Other nonspecific abnormal finding of lung field; J44.9 Chronic obstructive pulmonary disease, unspecified; D72.829 Elevated white blood cell count, unspecified; R62.7 Adult failure to thrive; F17.210 Nicotine dependence, cigarettes, uncomplicated
CPT/HCPCS: 36415; 71046; 71260; 74177; 80053; 81001; 82550; 82553; 82803; 82962; 83605; 83690; 83735; 83880; 84439; 84443; 84481; 84484; 85025; 85610; 85730; 87040; 87086; 93005; 93010; 94640; 96365; 96366; 96368; 96375; 99291; J1170; J1956; J2270; J2405; J3480; J3490

== ENCOUNTER 2018-04-21 08:13 | Inpatient (IN) | payer OTHER ==
[2018-04-21] MEDS ORDERED: ASPIRIN 81 MG TABLET, CHEWABLE PO ONE (08:21)
[2018-04-21] MEDS ORDERED: IPRATROPIUM/ALBUTEROL 0.5-2.5 MG/3 ML AMPUL NEB ONE (08:22)
--- NOTE | 2018-04-21 08:31 | ER Document Report ---
ED Respiratory Problem - General Stated Complaint: SHORTNESS OF BREATH Time Seen by Provider: 04/21/18 08:21 Notes: 52-year-old male with a history of pneumothorax with recurrent pleural effusion presents to the ER with respiratory distress. EMS found the patient to be have sats in the 80s. Patient states he has been having worsening shortness of breath over the last 4 days. The patient was seen here last month and was found to have a pneumothorax. He was transferred to [facility]. The patient has recurrent Pleurx catheter/chest tube draining. Patient denies any fever or chills. Denies nausea vomiting denies calf pain or tenderness. TRAVEL OUTSIDE OF THE [place] IN LAST 30 DAYS: No - Related Data Allergies/Adverse Reactions: gabapentin Allergy (Verified 03/24/18 00:15) Past Medical History - Social History Smoking Status: Current Every Day Smoker Family History: COPD - Past Medical History Cardiac Medical History: Denies: Hx Coronary Artery Disease, Hx Hypertension Pulmonary Medical History: Reports: Hx COPD Denies: Hx Tuberculosis Neurological Medical History: Denies: Hx Seizures Endocrine Medical History: Denies: Hx Diabetes Mellitus Type 1, Hx Diabetes Mellitus Type 2, Hx Hyperthyroidism, Hx Hypothyroidism Renal/ Medical History: Denies: Hx Peritoneal Dialysis GI Medical History: Denies: Hx Cirrhosis, Hx Hepatitis Musculoskeletal Medical History: Denies Hx Arthritis, Denies Hx Fibromyalgia Skin Medical History: Denies Hx Eczema, Denies Hx Psoriasis Psychiatric Medical History: Denies: Hx Depression Infectious Medical History: Denies: Hx Hepatitis Past Surgical History: Reports: Hx Orthopedic Surgery - ORIF left knee after accident many years ago., Other - Dental extractions. Review of Systems - Review of Systems Constitutional: denies: Chills, Fever Cardiovascular: Dyspnea. denies: Chest pain, Orthopnea Respiratory: Cough, Short of breath, Sputum. denies: Hemoptysis -: Yes All other systems reviewed and negative Physical Exam - Vital signs Vitals: Resp BP Pulse Ox 20 186/112 H 97 04/21/18 08:16 04/21/18 08:16 04/21/18 08:16 - Notes Notes: GENERAL_APPEARANCE: well_nourished, alert, cooperative, respiratory distress VITALS: reviewed, see vital signs table. HEAD: no_swelling\tenderness on the head. EYES: PERRL, EOMI, conjunctiva_clear. NOSE: no_nasal_discharge. MOUTH: (-)decreased moisture. THROAT: no_throat_inflammation, no_airway_obstruction. no_lymphadenopathy NECK: supple, no_neck_tenderness, (-)thyromegaly. BACK: no_back_tenderness. CHEST_WALL: no_chest_tenderness. Chest tube left chest no signs of infection around LUNGS: Gathered_wheezing, no_rales, no_rhonchi, positive accessory muscle use, poor air exchange bilateral. HEART: normal_rate, normal_rhythm, normal_S1, normal_S2, (-)S3, (-)S4, no_murmur, no_rub. ABDOMEN: normal_BS, soft, no_abd_tenderness, (-)guarding, (-)rebound, no_organomegaly, no_abd_masses. EXTREMITIES: strength 5/5 in all_extremities, good pulses in all_extremities, no_swelling\tenderness in the extremities, no_edema. SKIN: No cool diaphoretic MENTAL_STATUS: speech_labored, 2 her dyspnea, oriented_X_3, labored_affect, responds_appropriately to questions. Course - Re-evaluation Re-evalutation: 04/21/18 08:30 52-year-old male presents to the ER with respiratory distress. He will be given aerosol treatments and placed on BiPAP. We will get a chest x-ray to assess for any recurrent pneumothorax. Or loculated effusion. We took the patient from a 7 L mask down to a 6 L nasal cannula and he continued to desat we will place him on BiPAP. 04/21/18 09:46 The patient has become more more short of breath and tachycardic while he has been here. He becomes diaphoretic stating that he felt as if he was going to . The patient's right-sided pneumothorax is likely become tension. He has barely any lung sounds now on the right. It was decided to do a emergent chest tube. Using a 24 Macanese chest tube using sterile procedures the patient had a very large gush of air upon entry into the pleural cavity. The tube was sutured at 18 cm. No fluid was drained. Pleur-evac was hooked up and confirmed with chest x-ray. Patient will be given 2 g of Ancef IV. To be given some additional pain medicine. Patient is feeling tremendously better after the chest tube insertion he began asking for his home meds and food and something to drink about 15 minutes after the insertion. [facility]. 04/21/18 11:04 The patient is doing much better. We are able to get him down to 3 L nasal cannula. He looks a lot better he still little tachycardic but this may be due to all the nebulization treatments. The patient received steroids via EMS. He is received some Ancef here. He seems to be improving. The patient does have a little air leak on the chest tube. Since [facility] has no beds I spoke with our hospitalist who agreed to hospitalize the patient. Patient is very agreeable to stay. Patient received some pain medicine for his chronic pain issues. - Vital Signs Vital signs: Temp Pulse Resp BP Pulse Ox 97.5 F 16 114/67 98 04/21/18 08:33 04/21/18 10:10 04/21/18 10:10 04/21/18 10:10 - Laboratory Result Diagrams: 04/21/18 09:43 04/21/18 09:43 Laboratory results interpreted by me: 04/21/18 04/21/18 09:43 09:43 WBC 26.7 H RBC 3.15 L Hgb 9.1 L Hct 28.0 L RDW 18.1 H Plt Count 685 H Seg Neuts % (Manual) 86 H Lymphocytes % (Manual) 5 L Abs Neuts (Manual) 24.0 H Creatinine 0.49 L Glucose 165 H Alkaline Phosphatase 169 H Creatine Kinase 43 L - Diagnostic Test Radiology reviewed: Reports reviewed - EKG Interpretation by Me Rate: Tachycardia When compared to previous EKG there are: No significant change Procedures - Chest Tube Right Time completed: 09:36 Consent obtained: Yes Chest tube pre-insertion: Sterile PPE donned, Chloraprep applied Size of Macanese Tube (cm): 24 Anesthetic type: 2% Lidocaine mL's of anesthetic: 10 Chest tube post-insertion: Air pryor heard, Sutured, Position confirmed w/ CXR, Low intermittent suction Chest tube drainage: 1 cc Number of attempts: 1 Complications: No Notes: 04/21/18 09:49 Sutured at 18 cm Critical Care Note - Critical Care Note Total time excluding time spent on procedures (mins): 40 Discharge - Discharge Clinical Impression: Tension pneumothorax, spontaneous, COPD with exacerbation Condition: Good Disposition: ADMITTED INPATIENT Admitting Provider: Hospitalist Unit Admitted: ICU
[2018-04-21] MEDS ORDERED: LIDOCAINE 2% INJ-PF (20 MG/ML) 10 ML AMPUL INFIL ONE (08:40)
[2018-04-21 08:45] LABS: INTERNATIONAL RATION (INR) 1.09; PROTHROMBIN TIME 14.7 SEC (11.4-15.4)
[2018-04-21] MEDS ORDERED: MIDAZOLAM 2 MG/2 ML INJ IV ONE (08:52)
--- NOTE | 2018-04-21 09:05 | RADIOLOGY REPORT (SQ) ---
EXAM DESCRIPTION: CHEST SINGLE VIEW COMPLETED DATE/TIME: 04/21/2018 8:50 am REASON FOR STUDY: SOB COMPARISON: 03/23/2018. EXAM PARAMETERS: NUMBER OF VIEWS: One view. TECHNIQUE: Single frontal radiographic view of the chest acquired. RADIATION DOSE: NA LIMITATIONS: None. FINDINGS: LUNGS AND PLEURA: Moderate right-sided pneumothorax. Left chest tube with decrease in the left pleural effusion compared to prior study. No pneumothorax on the left. MEDIASTINUM AND HILAR STRUCTURES: No masses. Contour normal. HEART AND VASCULAR STRUCTURES: Heart normal in size. Normal vasculature. BONES: No acute findings. HARDWARE: Left side chest tube. OTHER: No other significant finding. IMPRESSION: 1. MODERATE RIGHT PNEUMOTHORAX. DR. OLIVARES WAS CONTACTED AND WAS ALREADY AWARE OF THE PRESENCE OF TH E PNEUMOTHORAX. 2. LEFT-SIDED CHEST TUBE WITH DECREASE IN THE PREVIOUSLY SEEN LEFT PLEURAL EFFUSION. COMMENT: Pertinent findings on the imaging study reported as a CRITICAL RESULT to JORDY OLIVARES MD at08:52 on 04/21/2018. Category of Critical Result: Pneumothorax. TECHNICAL DOCUMENTATION: JOB ID: [id number] [employer]- All Rights Reserved Reading location - IP/workstation name: [email or web address]
[2018-04-21] MEDS ORDERED: MORPHINE SULFATE 10 MG/ML INJ IV ONE ×2 (09:45→15:00)
[2018-04-21] MEDS ORDERED: CEFAZOLIN INJ 1 GM VIAL IV ONE (09:45)
[2018-04-21 10:02] LABS: HEMOGLOBIN 9.1 g/dL (13.5-17.0); MEAN CORPUSCULAR HGB CONC 32.7 g/dL (32.0-36.0); MEAN CORPUSCULAR VOLUME 89 fl (80-97); PLATELET COUNT 685 10^3/uL (150-450); RED BLOOD COUNT 3.15 10^6/uL (4.35-5.55); RED CELL DISTRIBUTION WIDTH 18.1 % (11.5-14.0); WHITE BLOOD COUNT 26.7 10^3/uL (4.0-10.5)
[2018-04-21 10:16] LABS: ALANINE AMINOTRANSFERASE 27 U/L (21-72); ALKALINE PHOSPHATASE 169 U/L (38-126); ANION GAP 12 (5-19); ASPARTATE AMINO TRANSFERASE 29 U/L (17-59); BILIRUBIN,DIRECT 0.2 mg/dL (0.0-0.4); BILIRUBIN,TOTAL 0.3 mg/dL (0.2-1.3); BLOOD UREA NITROGEN 13 mg/dL (7-20); CALCIUM 9.2 mg/dL (8.4-10.2); CARBON DIOXIDE 28 mmol/L (22-30); CHLORIDE 100 mmol/L (98-107); CREATINE KINASE 43 U/L (55-170); GLUCOSE 165 mg/dL (75-110); SODIUM 140.1 mmol/L (137-145); TOTAL PROTEIN 7.4 g/dL (6.3-8.2)
[2018-04-21 10:27] LABS: CREATINE KINASE MB 4.3 ng/mL (<4.55); TROPONIN I 0.024 ng/mL
[2018-04-21 10:37] LABS: ABSOLUTE LYMPHOCYTES# (MANUAL) 1.3 10^3/uL (0.5-4.7); ABSOLUTE MONOCYTES # (MANUAL) 1.3 10^3/uL (0.1-1.4); BAND NEUTROPHILS % (MANUAL) 4 % (3-5); BASOPHILS % (MANUAL) 0 % (0-2); EOSINOPHILS % (MANUAL) 0 % (0-6); LYMPHOCYTES % (MANUAL) 5 % (13-45); MONOCYTES % (MANUAL) 5 % (3-13); SEGMENTED NEUTROPHILS % (MAN) 86 % (42-78); TOTAL CELLS COUNTED 100
--- NOTE | 2018-04-21 10:39 | RADIOLOGY REPORT (SQ) ---
EXAM DESCRIPTION: CHEST SINGLE VIEW COMPLETED DATE/TIME: 04/21/2018 10:11 am REASON FOR STUDY: post-chest tube placement COMPARISON: 04/21/2018 EXAM PARAMETERS: NUMBER OF VIEWS: One view. TECHNIQUE: Single frontal radiographic view of the chest acquired. RADIATION DOSE: NA LIMITATIONS: None. FINDINGS: LUNGS AND PLEURA: Interval placement of a right-sided chest tube with near complete resolu tion of a previously seen right pneumothorax. Tiny persistent pneumothorax. Left-sided chest tube i n position without significant pneumothorax. Unchanged heterogeneous opacity and consolidation of th e left lung base. MEDIASTINUM AND HILAR STRUCTURES: No masses. Contour normal. HEART AND VASCULAR STRUCTURES: Heart normal in size. Normal vasculature. BONES: No acute findings. HARDWARE: None in the chest. OTHER: No other significant finding. IMPRESSION: Interval placement of a right-sided chest tube with near complete resolution of a previo usly seen right pneumothorax. Tiny persistent pneumothorax. Left-sided chest tube in position witho ut significant pneumothorax. Unchanged heterogeneous opacity and consolidation of the left lung base . TECHNICAL DOCUMENTATION: JOB ID: [id number] [employer]- All Rights Reserved Reading location - IP/workstation name: [email or web address]
[2018-04-21 10:40] LABS: PLATELET COMMENT INCREASED; RBC MORPHOLOGY COMMENT NORMO-CYTIC/CHROMIC; TOXIC GRANULATION 1+
[2018-04-21] MEDS ORDERED: LEVALBUTEROL HCL NEB 1.25 MG/3 ML AMPUL NEB PRN (12:23)
[2018-04-21] MEDS ORDERED: MAGNESIUM HYDROXIDE SUSP 30 ML UDCUP PO PRN (12:32)
[2018-04-21] MEDS ORDERED: VANCOMYCIN HCL 0 MG in DEXTROSE 5%-WATER 250 ML IV NR (13:00)
[2018-04-21] MEDS: VANCOMYCIN HCL 750 MG in DEXTROSE 5%-WATER 250 ML IV SCH ×2 (14:42→21:49)
[2018-04-21] MEDS: HEPARIN SOD (PORCINE) 5,000 UNIT/ML 1 ML SYRINGE SUBCUT SCH ×2 (14:42→21:51)
--- NOTE | 2018-04-21 14:50 | RADIOLOGY REPORT (SQ) ---
EXAM DESCRIPTION: CT CHEST WITH COMPLETED DATE/TIME: 04/21/2018 2:35 pm REASON FOR STUDY: Hypoxia, FU previous CT, ?mass/nodes COMPARISON: Chest radiograph, 04/21/2018, CT chest, 03/24/2018 TECHNIQUE: CT scan of the chest performed using helical scanning technique with dynamic intravenous contrast injection. Images reviewed with lung, soft tissue and bone windows. Reconstructed coronal and sagittal MPR and MIP images reviewed. All images stored on PACS. All CT scanners at this facility use dose modulation, iterative reconstruction, and/or weight based d osing when appropriate to reduce radiation dose to as low as reasonably achievable (ALARA). [facility]: Dose Right [facility]: CareDose [facility]: Dose Right [facility]: Teradose 4D [facility]: bounce.io CONTRAST TYPE AND DOSE: contrast/concentration: Isovue 350.00 mg/ml; Total Contrast Delivered: 80.0 ml; Total Saline Delivered: 55.0 ml RENAL FUNCTION: GFR > 60. RADIATION DOSE: CT Rad equipment meets quality standard of care and radiation dose reduction techniq ues were employed. CTDIvol: 5.0 mGy. DLP: 215 mGy-cm. . LIMITATIONS: None. FINDINGS: LUNGS AND PLEURA: Severe emphysema. There are bilateral chest tubes in position with a ti ny right pneumothorax. Trace right-sided pleural effusion. Left-sided chest tube within a small mul tiloculated hydropneumothorax with multifocal left basilar consolidation. HILAR AND MEDIASTINAL STRUCTURES: No identified masses or abnormal nodes. HEART AND VASCULAR STRUCTURES: No aneurysm or dissection. No central pulmonary emboli. No pericardi al effusion. HARDWARE: None in the chest. UPPER ABDOMEN: No significant findings. Limited exam. THYROID AND OTHER SOFT TISSUES: No masses. No adenopathy. BONES: No significant finding. OTHER: No other significant finding. IMPRESSION: Severe emphysema. There are bilateral chest tubes in position with a tiny right pneumo thorax. Trace right-sided pleural effusion. Left-sided chest tube within a small multiloculated hydro pneumothorax with multifocal left basilar consolidation. No obvious mass or lymphadenopathy. Consid er follow-up in 3 months to ensure complete resolution or stability of consolidations. TECHNICAL DOCUMENTATION: JOB ID: [id number] Quality ID # 436: Final reports with documentation of one or more dose reduction techniques (e.g., Au tomated exposure control, adjustment of the mA and/or kV according to patient size, use of iterative reconstruction technique) 2010 [employer]- All Rights Reserved Reading location - IP/workstation name: [email or web address]
[2018-04-21] MEDS ORDERED: PIPERACILLIN SODIUM/TAZOBACTAM 4.5 GM in NORMAL SALINE 100 ML IV SCH (18:00)
[2018-04-21] MEDS: DOCUSATE SODIUM 100 MG CAPSULE PO SCH (18:56)
[2018-04-21] MEDS: OXYCODONE-ACETAMINOPHEN 5-325 MG TABLET PO PRN (18:56)
[2018-04-21] MEDS: TIZANIDINE HCL 4 MG TABLET PO SCH ×2 (18:56→21:51)
[2018-04-21] MEDS: MEROPENEM 1 GM in NORMAL SALINE 50 ML IV SCH (18:57)
[2018-04-21] MEDS: MORPHINE SULFATE SR 15 MG TABLET PO SCH (21:49)
[2018-04-21] MEDS: GABAPENTIN 300 MG CAPSULE PO SCH (21:51)
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
[2018-04-22] MEDS: MEROPENEM 1 GM in NORMAL SALINE 50 ML IV SCH ×3 (01:54→17:34)
[2018-04-22] MEDS: OXYCODONE-ACETAMINOPHEN 5-325 MG TABLET PO PRN ×5 (02:27→21:37)
[2018-04-22 04:18] LABS: HEMATOCRIT 24.1 % (37.9-51.0); HEMOGLOBIN 8.1 g/dL (13.5-17.0); MEAN CORPUSCULAR HEMOGLOBIN 29.4 pg (27.0-33.4); MEAN CORPUSCULAR HGB CONC 33.5 g/dL (32.0-36.0); MEAN CORPUSCULAR VOLUME 88 fl (80-97); PLATELET COUNT 512 10^3/uL (150-450); RED BLOOD COUNT 2.75 10^6/uL (4.35-5.55); RED CELL DISTRIBUTION WIDTH 17.6 % (11.5-14.0); WHITE BLOOD COUNT 13.5 10^3/uL (4.0-10.5)
[2018-04-22 04:38] LABS: ANION GAP 7 (5-19); BLOOD UREA NITROGEN 15 mg/dL (7-20); CALCIUM 9.5 mg/dL (8.4-10.2); CARBON DIOXIDE 29 mmol/L (22-30); CHLORIDE 102 mmol/L (98-107); GLUCOSE 119 mg/dL (75-110); POTASSIUM 4.6 mmol/L (3.6-5.0); SODIUM 138.4 mmol/L (137-145)
[2018-04-22] MEDS: GABAPENTIN 300 MG CAPSULE PO SCH ×2 (05:46→05:47)
[2018-04-22] MEDS: MORPHINE SULFATE SR 15 MG TABLET PO SCH ×3 (05:47→21:38)
[2018-04-22] MEDS: HEPARIN SOD (PORCINE) 5,000 UNIT/ML 1 ML SYRINGE SUBCUT SCH ×3 (05:48→21:38)
[2018-04-22] MEDS: VANCOMYCIN HCL 750 MG in DEXTROSE 5%-WATER 250 ML IV SCH ×2 (05:49→14:28)
--- NOTE | 2018-04-22 09:30 | RADIOLOGY REPORT (SQ) ---
EXAM DESCRIPTION: CHEST SINGLE VIEW COMPLETED DATE/TIME: 04/22/2018 8:49 am REASON FOR STUDY: chest tube follow up COMPARISON: 04/21/2018 EXAM PARAMETERS: NUMBER OF VIEWS: One view. TECHNIQUE: Single frontal radiographic view of the chest acquired. RADIATION DOSE: NA LIMITATIONS: None. FINDINGS: LUNGS AND PLEURA: Indwelling right chest tube. Small apicolateral pneumothorax remain. I ndwelling left chest tube. Persistent basilar opacities and effusion. MEDIASTINUM AND HILAR STRUCTURES: No masses. Contour normal. HEART AND VASCULAR STRUCTURES: Heart normal in size. Normal vasculature. BONES: No acute findings. HARDWARE: None in the chest. OTHER: No other significant finding. IMPRESSION: Bilateral chest tubes. Small apical pneumothorax persists on the right. Parenchymal pl eural changes persist on the left. TECHNICAL DOCUMENTATION: JOB ID: [id number] [employer]- All Rights Reserved Reading location - IP/workstation name: [email or web address]
[2018-04-22] MEDS: TIZANIDINE HCL 4 MG TABLET PO SCH ×3 (09:38→21:38)
[2018-04-22] MEDS: DOCUSATE SODIUM 100 MG CAPSULE PO SCH ×2 (09:39→17:35)
[2018-04-22 15:04] LABS: VANCOMYCIN,TROUGH 10.7 ug/mL (5.0-20.0)
--- NOTE | 2018-04-22 17:08 | PDOC PROGRESS REPORT ---
Subjective Progress Note for:: 04/22/18 Subjective:: There is a 52-year-old male with a spontaneous right-sided pneumothorax. The patient is status post chest tube insertion. The patient reports no difficulty with breathing today. He does report pain in the right chest. Patient denies any fevers or chills at present. He denies blurry vision, orthostasis, abdominal pain, malaise, or fatigue. Reason For Visit: PNEUMOTHORAX Physical Exam Vital Signs: Temp Pulse Resp BP Pulse Ox 98 F 93 18 107/60 98 04/22/18 05:21 04/22/18 15:42 04/22/18 15:42 04/22/18 13:27 04/22/18 15:42 Intake & Output 04/21/18 04/22/18 04/23/18 06:59 06:59 06:59 Intake Total 1050 700 Output Total 1475 550 Balance -425 150 Weight 54.7 kg General appearance: PRESENT: no acute distress, cooperative Head exam: PRESENT: atraumatic, normocephalic Eye exam: PRESENT: EOMI, PERRLA Mouth exam: PRESENT: neck supple Neck exam: ABSENT: meningismus, tenderness, thyromegaly, tracheal deviation Respiratory exam: PRESENT: chest wall tenderness, other - Right-sided chest tube in place. Active air leak present. Currently to waterseal. Left-sided chest tube also present with Heimlich valve in place. Cardiovascular exam: PRESENT: RRR Pulses: PRESENT: normal radial pulses GI/Abdominal exam: PRESENT: soft. ABSENT: distended, tenderness Rectal exam: PRESENT: deferred Extremities exam: ABSENT: clubbing Musculoskeletal exam: ABSENT: deformity Neurological exam: PRESENT: alert, awake, oriented to person, oriented to place, oriented to time, oriented to situation, CN II-XII grossly intact Psychiatric exam: ABSENT: agitated, anxious, depressed Focused psych exam: ABSENT: delusional Skin exam: ABSENT: cyanosis, erythema, jaundice Results Laboratory Results: 04/22/18 04:03 04/22/18 14:05 04/22/18 04/22/18 04/22/18 04:03 04:03 14:05 WBC 13.5 H RBC 2.75 L Hgb 8.1 L Hct 24.1 L MCV 88 MCH 29.4 MCHC 33.5 RDW 17.6 H Plt Count 512 H Sodium 138.4 Potassium 4.6 Chloride 102 Carbon Dioxide 29 Anion Gap 7 BUN 15 Creatinine 0.38 L 0.42 L Est GFR ( Amer) > 60 > 60 Est GFR (Non-Af Amer) > 60 > 60 Glucose 119 H Calcium 9.5 Magnesium 2.1 04/21/18 04/21/18 04/21/18 08:20 08:20 09:43 Creatine Kinase Cancelled CK-MB (CK-2) Cancelled 4.30 Troponin I Cancelled 0.024 04/21/18 09:43 Creatine Kinase 43 L CK-MB (CK-2) Troponin I Impressions: Chest CT 04/21/18 00:00 IMPRESSION: Severe emphysema. There are bilateral chest tubes in position with a tiny right pneumothorax. Trace right-sided pleural effusion. Left-sided chest tube within a small multiloculated hydropneumothorax with multifocal left basilar consolidation. No obvious mass or lymphadenopathy. Consider follow-up in 3 months to ensure complete resolution or stability of consolidations. Chest X-Ray 04/22/18 07:49 IMPRESSION: Bilateral chest tubes. Small apical pneumothorax persists on the right. Parenchymal pleural changes persist on the left. Status: Image reviewed by me Assessment & Plan - Diagnosis (1) Tension pneumothorax, spontaneous Is this a current diagnosis for this admission?: Yes - Plan Summary Plan Summary: This is a 52-year-old male with a spontaneous right-sided pneumothorax. He is s tatus post chest tube. The patient today has an active air leak on waterseal. I will return his chest tube to suction. Maintain chest tube to suction until air leak has resolved. If the patient's air leak will not resolve, I will obtain a CT of the chest, and plan for possible placement of a second chest tube, or transfer to a higher level of care with thoracic surgery capabilities. Currently the patient is stable for transfer to the floor, if okay with the medicine service.
[2018-04-22] MEDS: VANCOMYCIN HCL 1,250 MG in DEXTROSE 5%-WATER 250 ML IV SCH (21:37)
--- NOTE | 2018-04-23 00:17 | PROGRESS NOTE E ---
Progress Note NAME: JUDY ZAVALA : 1965 AGE: 52Y DATE: 04/22/2018 ROOM: 601 SUBJECTIVE: The patient is currently sitting up in bed. The patient states that he feels okay today. He is a little tender at this chest tube site. The patient denies any nausea, vomiting, diarrhea. No shortness of breath, dizziness. No fevers, chills. The patient has been afebrile. His blood pressure has been in a good range and the patient did not voice any other concerns at this time. REVIEW OF SYSTEMS: Rest of the review of systems negative. MEDICATIONS: Have been reviewed. OBJECTIVE: GENERAL: The patient is a 52-year-old male who is awake, alert, and oriented to person, time, place, situation. He is verbal, conversational. Does not appear to be in any acute distress. VITAL SIGNS: Temperature is 98.0, pulse 99, respirations 20, blood pressure is 107/60, oxygen saturation is 98% on 2 liters nasal cannula. SKIN: Pale, dry. No rash. He is not diaphoretic. HEENT: Pupils are reactive. Conjunctivae are pink. There is no evidence of JVP. CARDIOVASCULAR: Heart is regular. There is no murmur or rub. CHEST: Symmetrical, clear, unlabored. The patient's chest tube is to low wall suction. ABDOMEN: Soft, nontender. EXTREMITIES: No edema. PSYCHIATRIC: Appropriate affect, pleasant mood. DIAGNOSTICS: Lab values are as follows - Hematology obtained on 04/22/2018; WBC is 13.5, hemoglobin is 8.1, hematocrit is 24.1, platelet count is 512,000. Chemistry obtained on 04/22/2017; sodium is 138, potassium 4.6, chloride is 102, carbon dioxide 29, BUN 15, creatinine is 0.38, glucose 119, calcium is 9.5, magnesium is 2.1. IMPRESSION AND PLAN: 1. NEW RIGHT PNEUMOTHORAX, STATUS POST CHEST TUBE PLACEMENT. Do appreciate surgery's help with this. Appears to be improving. 2. LEFT-SIDED PLEURAL EFFUSION. The patient is having this drained at intervals. He is status post at VATS procedure at [facility]. 3. PROTEIN CALORIE MALNOURISHMENT WITH A BMI OF 15. Have encouraged a high calorie, high protein diet. 4. POSTOBSTRUCTIVE PNEUMONIA. The patient has responded very nicely to antibiotics. Will continue to monitor. His white count trended down. 5. ACUTE HYPOXEMIC RESPIRATORY FAILURE. The patient recovered nicely after a chest tube insertion and probably has underlying chronic disease as well. CODE STATUS: The patient is a full code. DISPOSITION: Depending on the patient's symptomatology and diagnostic findings will reevaluate in the a.m. The patient can be downgraded to an IMCU bed. TIME SPENT: On this follow up, including assessment and plan, physical examination, patient education, review of record is 35 minutes. DICTATING PHYSICIAN: WASHINGTON ORTEGA NP [id number] [id number] PHY#: [id number] ID: [id number] JOB#: [id number] ACCT: [id number] cc: >
[2018-04-23] MEDS: OXYCODONE-ACETAMINOPHEN 5-325 MG TABLET PO PRN (01:27)
[2018-04-23] MEDS: MEROPENEM 1 GM in NORMAL SALINE 50 ML IV SCH ×3 (01:27→17:42)
[2018-04-23] MEDS: MORPHINE SULFATE IR 15 MG TABLET PO PRN ×5 (04:21→20:43)
[2018-04-23 05:13] LABS: ABSOLUTE BASOPHILS # (AUTO) 0.1 10^3/uL (0.0-0.2); ABSOLUTE EOSINOPHILS # (AUTO) 0.2 10^3/uL (0.0-0.6); ABSOLUTE LYMPHOCYTES (AUTO) 3.4 10^3/uL (0.5-4.7); ABSOLUTE MONOCYTES (AUTO) 0.8 10^3/uL (0.1-1.4); ABSOLUTE NEUT (AUTO) 5.4 10^3/uL (1.7-8.2); EOSINOPHILS % (AUTO) 2.1 % (0-6); HEMATOCRIT 23.3 % (37.9-51.0); LYMPHOCYTES % (AUTO) 34.1 % (13-45); MEAN CORPUSCULAR HEMOGLOBIN 29.9 pg (27.0-33.4); MEAN CORPUSCULAR VOLUME 88 fl (80-97); MONOCYTES % (AUTO) 8.3 % (3-13); PLATELET COUNT 531 10^3/uL (150-450); RED BLOOD COUNT 2.65 10^6/uL (4.35-5.55); RED CELL DISTRIBUTION WIDTH 17.3 % (11.5-14.0); SEGMENTED NEUTROPHILS % (AUTO) 54.5 % (42-78); TOTAL CELLS COUNTED % (AUTO) 100 %
[2018-04-23 05:22] LABS: HEMOGLOBIN 7.9 g/dL (13.5-17.0)
[2018-04-23 05:36] LABS: ALANINE AMINOTRANSFERASE 39 U/L (21-72); ALBUMIN 3.1 g/dL (3.5-5.0); ALKALINE PHOSPHATASE 130 U/L (38-126); ASPARTATE AMINO TRANSFERASE 43 U/L (17-59); BILIRUBIN,DIRECT 0.2 mg/dL (0.0-0.4); BILIRUBIN,TOTAL 0.2 mg/dL (0.2-1.3); BLOOD UREA NITROGEN 18 mg/dL (7-20); CALCIUM 8.9 mg/dL (8.4-10.2); GLUCOSE 85 mg/dL (75-110); TOTAL PROTEIN 6.2 g/dL (6.3-8.2)
[2018-04-23 05:41] LABS: ANION GAP 5 (5-19); CARBON DIOXIDE 33 mmol/L (22-30); CHLORIDE 100 mmol/L (98-107); SODIUM 137.6 mmol/L (137-145)
[2018-04-23] MEDS: MORPHINE SULFATE SR 15 MG TABLET PO SCH ×3 (06:25→22:27)
[2018-04-23] MEDS: HEPARIN SOD (PORCINE) 5,000 UNIT/ML 1 ML SYRINGE SUBCUT SCH ×3 (06:26→22:20)
[2018-04-23] MEDS: VANCOMYCIN HCL 1,250 MG in DEXTROSE 5%-WATER 250 ML IV SCH ×3 (06:26→22:28)
[2018-04-23] MEDS: DOCUSATE SODIUM 100 MG CAPSULE PO SCH ×2 (09:07→17:42)
[2018-04-23] MEDS: TIZANIDINE HCL 4 MG TABLET PO SCH ×3 (09:08→22:27)
[2018-04-23 12:46] LABS: ABSOLUTE RETICS # 0.063 10^6/uL (0.028-0.122); RETICULOCYTE COUNT (AUTO) 2.35 % (0.66-2.85)
[2018-04-23 13:03] LABS: IRON(TIBC) 49.8 ug/dL (49-181)
--- NOTE | 2018-04-23 13:45 | RADIOLOGY REPORT (SQ) ---
EXAM DESCRIPTION: CHEST SINGLE VIEW COMPLETED DATE/TIME: 04/23/2018 1:33 pm REASON FOR STUDY: Dyspnea COMPARISON: 04/22/2018 EXAM PARAMETERS: NUMBER OF VIEWS: One view. TECHNIQUE: Single frontal radiographic view of the chest acquired. RADIATION DOSE: NA LIMITATIONS: None. FINDINGS: LUNGS AND PLEURA: Stable appearance of the left lung. Pleural and parenchymal changes. N o pneumothorax. Indwelling left chest tube. Indwelling right chest tube. No pneumothorax. MEDIASTINUM AND HILAR STRUCTURES: No masses. Contour normal. HEART AND VASCULAR STRUCTURES: Heart normal in size. Normal vasculature. BONES: No acute findings. HARDWARE: Chest tubes. OTHER: No other significant finding. IMPRESSION: Stable appearance. Bilateral chest tubes. No pneumothorax. Stable parenchymal and ple ural changes at the left base. TECHNICAL DOCUMENTATION: JOB ID: [id number] [employer]- All Rights Reserved Reading location - IP/workstation name: [email or web address]
[2018-04-23 14:08] LABS: FOLATE 7.19 ng/mL (>2.76)
[2018-04-23] MEDS ORDERED: ACETAMINOPHEN 325 MG TABLET PO PRN (15:53)
[2018-04-23] MEDS ORDERED: DIPHENHYDRAMINE HCL 25 MG CAPSULE PO PRN (15:53)
[2018-04-23] MEDS ORDERED: NORMAL SALINE 250 ML IV PRN ×2 (15:53)
[2018-04-23] MEDS ORDERED: FUROSEMIDE INJ/PF 20 MG/2 ML SDV IV PRN (15:53)
--- NOTE | 2018-04-23 16:42 | PROGRESS NOTE E ---
Progress Note NAME: JUDY ZAVALA : 1965 AGE: 52Y DATE: 04/23/2018 ROOM: 601 SUBJECTIVE: The patient is sitting up in bed. The patient's main complaint is pain. He states he is not taking good deep breaths due to the pain. He denies nay nausea, vomiting. No diarrhea. He has a descent appetite. The patient did take off his oxygen and stand beside the bed and he desatted into the low 80s. Oxygen was reapplied. The patient recovered quite quickly. BRIEF HISTORY: The patient is a 52-year-old male with a past medical history of recent empyema status post VATS procedure at [facility] with Dr. Lucas on March 27. The patient's cultures at that time grew Strep viridans, but did have a foul anaerobic component, as noted on the procedure report. The patient was discharged home with a Pleurx catheter in place, which has been drained intermittently. The patient continuously reaccumulated this pleural fluid and has had to be drained at home. The patient presented to the ED with increasing dyspnea and was found to have a complete pneumothorax on the right side and subsequently had a 24-Amharic chest tube placed. The patient has been followed by Surgery and pain control has been an issue. The patient did have a very high white count, which responded to broad-spectrum antibiotic coverage. REVIEW OF SYSTEMS: Rest of review of systems negative. MEDICATIONS: Medications have been reviewed. OBJECTIVE: GENERAL: The patient is a 52-year-old male who is awake, alert, and oriented to person, place, time, and situation. He is verbal, conversational, does not appear to be distressed. VITAL SIGNS: Temperature is 97.7, pulse 78, respirations 19, blood pressure 144/92, oxygen saturation is 100% on 2 L nasal cannula. SKIN: Pale, dry. No rash. Not diaphoretic. HEENT: Pupils are reactive. Conjunctiva is pink. No evidence of JVP. The patient's face is very gaunt. CARDIOVASCULAR SYSTEM: Heart is regular, slightly tachycardic at times. No rub. CHEST: Actually clear, symmetrical, unlabored. Very poor inspiratory effort. ABDOMEN: Soft, nontender. EXTREMITIES: No clubbing, cyanosis, edema. PSYCHIATRIC: Appropriate affect, pleasant mood. DIAGNOSTICS: Lab values are as follows: Hematology obtained on 04/23/2018: WBCs are 10.0, hemoglobin is 7.9, hematocrit is 23.3, platelet count is 531,000. Chemistry obtained on 04/23/2018: Sodium is 137, potassium 4.0, chloride is 100, carbon dioxide 33, BUN 18, creatinine is 0.41, glucose 85, calcium is 8.9, magnesium is 2.0, bilirubin 0.2. AST 43, ALT is 39, Alk phos 130. Total protein 6.2, albumin 3.1. IMPRESSION AND PLAN: 1. NEW RIGHT PNEUMOTHORAX. The patient is status post chest tube placement. Do appreciate Surgery's help with this. Will repeat his chest x-ray today. He is on low wall suction at this point. 2. LEFT-SIDED PLEURAL EFFUSION. This has been drained in intervals. He is status post a VATS procedure at [facility]. Fluid was sent for cytology. 3. PROTEIN CALORIE MALNOURISHMENT WITH A BMI OF 15. The patient has been encouraged a high-calorie, high-protein diet. 4. POST-OBSTRUCTIVE PNEUMONIA. The patient responded very nicely to antibiotic coverage. Will continue to monitor. White count is trending down. 5. ACUTE HYPOXEMIC RESPIRATORY FAILURE. The patient recovered nicely after the chest tube was inserted. The patient most likely has underlying chronic disease as well. He has profound emphysema and most likely just blew a bleb. 6. ANEMIA, POSSIBLY ANEMIA OF UNDERLYING CHRONIC DISEASE. Will obtain iron studies and transfuse the patient a unit of blood. DISPOSITION: The patient is a FULL CODE. Pending patient's symptomatology and diagnostic findings, will re-evaluate in the a.m. Time spent on this followup including assessment, plan, physical examination, patient education, and review of records is 35 minutes. DICTATING PHYSICIAN: WASHINGTON ORTEGA NP [id number] PHY#: [id number] ID: [id number] JOB#: [id number] ACCT: [id number] cc: >
--- NOTE | 2018-04-23 16:47 | PDOC PROGRESS REPORT ---
Subjective Subjective:: There is a 52-year-old male with a spontaneous right-sided pneumothorax. The patient is status post chest tube insertion. The patient reports no difficulty with breathing today. He does report pain in the right chest, especially with inspiration. Patient denies any fevers or chills at present. He denies blurry vision, orthostasis, abdominal pain, malaise, or fatigue. Reason For Visit: PNEUMOTHORAX Physical Exam Vital Signs: Temp Pulse Resp BP Pulse Ox 98.7 F 78 19 144/92 H 100 04/23/18 12:00 04/23/18 07:00 04/23/18 09:33 04/23/18 09:33 04/23/18 08:00 Intake & Output 04/22/18 04/23/18 04/24/18 06:59 06:59 06:59 Intake Total 1050 1900 300 Output Total 1475 2100 375 Balance -425 -200 -75 Weight 54.7 kg 54.2 kg General appearance: PRESENT: no acute distress, cooperative Head exam: PRESENT: atraumatic, normocephalic Eye exam: PRESENT: EOMI, PERRLA Mouth exam: PRESENT: neck supple Neck exam: ABSENT: meningismus, tenderness, thyromegaly, tracheal deviation Respiratory exam: PRESENT: chest wall tenderness, rhonchi Cardiovascular exam: PRESENT: RRR Pulses: PRESENT: normal radial pulses GI/Abdominal exam: PRESENT: soft. ABSENT: distended, firm, rebound, tenderness Rectal exam: PRESENT: deferred Extremities exam: ABSENT: clubbing Musculoskeletal exam: ABSENT: deformity Neurological exam: PRESENT: alert, awake, oriented to person, oriented to place, oriented to time, oriented to situation, CN II-XII grossly intact Psychiatric exam: ABSENT: agitated, anxious, depressed Focused psych exam: ABSENT: delusional Skin exam: ABSENT: cyanosis, erythema, jaundice Results Laboratory Results: 04/23/18 04:52 04/23/18 04:52 04/23/18 04/23/18 04/23/18 04:52 04:52 04:52 WBC 10.0 RBC 2.65 L Hgb 7.9 L Hct 23.3 L MCV 88 MCH 29.9 MCHC 34.0 RDW 17.3 H Plt Count 531 H Seg Neutrophils % 54.5 Lymphocytes % 34.1 Monocytes % 8.3 Eosinophils % 2.1 Basophils % 1.0 Absolute Neutrophils 5.4 Absolute Lymphocytes 3.4 Absolute Monocytes 0.8 Absolute Eosinophils 0.2 Absolute Basophils 0.1 Retic Count (auto) 2.35 Absolute Retic 0.063 Sodium 137.6 Potassium 4.0 Chloride 100 Carbon Dioxide 33 H Anion Gap 5 BUN 18 Creatinine 0.41 L Est GFR ( Amer) > 60 Est GFR (Non-Af Amer) > 60 Glucose 85 Calcium 8.9 Magnesium 2.0 Iron TIBC % Saturation Ferritin Total Bilirubin 0.2 AST 43 ALT 39 Alkaline Phosphatase 130 H Total Protein 6.2 L Albumin 3.1 L Vitamin B12 Folate 04/23/18 04:52 WBC RBC Hgb Hct MCV MCH MCHC RDW Plt Count Seg Neutrophils % Lymphocytes % Monocytes % Eosinophils % Basophils % Absolute Neutrophils Absolute Lymphocytes Absolute Monocytes Absolute Eosinophils Absolute Basophils Retic Count (auto) Absolute Retic Sodium Potassium Chloride Carbon Dioxide Anion Gap BUN Creatinine Est GFR ( Amer) Est GFR (Non-Af Amer) Glucose Calcium Magnesium Iron 49.8 TIBC 290 % Saturation 17 Ferritin 139.00 Total Bilirubin AST ALT Alkaline Phosphatase Total Protein Albumin Vitamin B12 501.0 Folate 7.19 04/21/18 04/21/18 04/21/18 08:20 08:20 09:43 Creatine Kinase Cancelled CK-MB (CK-2) Cancelled 4.30 Troponin I Cancelled 0.024 04/21/18 09:43 Creatine Kinase 43 L CK-MB (CK-2) Troponin I Impressions: Chest CT 04/21/18 00:00 IMPRESSION: Severe emphysema. There are bilateral chest tubes in position with a tiny right pneumothorax. Trace right-sided pleural effusion. Left-sided chest tube within a small multiloculated hydropneumothorax with multifocal left basilar consolidation. No obvious mass or lymphadenopathy. Consider follow-up in 3 months to ensure complete resolution or stability of consolidations. Chest X-Ray 04/23/18 00:00 IMPRESSION: Stable appearance. Bilateral chest tubes. No pneumothorax. Stable parenchymal and pleural changes at the left base. Assessment & Plan - Diagnosis (1) Tension pneumothorax, spontaneous Is this a current diagnosis for this admission?: Yes - Plan Summary Plan Summary: This is a 52-year-old male with a spontaneous right-sided pneumothorax. He is status post chest tube placement. The patient's air leak is no longer present. I will leave his chest tube to suction today. If the patient's air leak returns, he will need a CT of the chest, and plan for possible placement of a second chest tube, or transfer to a higher level of care with thoracic surgery capabilities. Currently the patient is stable for transfer to the floor, if okay with the medicine service.
[2018-04-24] MEDS: MORPHINE SULFATE IR 15 MG TABLET PO PRN ×4 (03:22→17:59)
[2018-04-24] MEDS: MEROPENEM 1 GM in NORMAL SALINE 50 ML IV SCH ×3 (03:30→18:02)
[2018-04-24 06:11] LABS: HEMATOCRIT 33.1 % (37.9-51.0); MEAN CORPUSCULAR HEMOGLOBIN 29.7 pg (27.0-33.4); MEAN CORPUSCULAR HGB CONC 34.6 g/dL (32.0-36.0); MEAN CORPUSCULAR VOLUME 86 fl (80-97); PLATELET COUNT 562 10^3/uL (150-450); RED BLOOD COUNT 3.87 10^6/uL (4.35-5.55); RED CELL DISTRIBUTION WIDTH 15.9 % (11.5-14.0); WHITE BLOOD COUNT 11.4 10^3/uL (4.0-10.5)
[2018-04-24 06:16] LABS: HEMOGLOBIN 11.5 g/dL (13.5-17.0)
[2018-04-24 06:30] LABS: ANION GAP 5 (5-19); BLOOD UREA NITROGEN 11 mg/dL (7-20); CALCIUM 9.4 mg/dL (8.4-10.2); CARBON DIOXIDE 38 mmol/L (22-30); CHLORIDE 95 mmol/L (98-107); GLUCOSE 91 mg/dL (75-110); POTASSIUM 4.5 mmol/L (3.6-5.0); SODIUM 137.7 mmol/L (137-145)
[2018-04-24 06:35] LABS: VANCOMYCIN,TROUGH 25.6 ug/mL (5.0-20.0)
[2018-04-24] MEDS: MORPHINE SULFATE SR 15 MG TABLET PO SCH ×3 (06:45→22:38)
[2018-04-24] MEDS: HEPARIN SOD (PORCINE) 5,000 UNIT/ML 1 ML SYRINGE SUBCUT SCH ×3 (06:45→22:41)
[2018-04-24] MEDS: VANCOMYCIN HCL 1,250 MG in DEXTROSE 5%-WATER 250 ML IV SCH ×2 (06:46→18:04)
--- NOTE | 2018-04-24 08:47 | RADIOLOGY REPORT (SQ) ---
EXAM DESCRIPTION: CHEST SINGLE VIEW COMPLETED DATE/TIME: 04/24/2018 6:46 am REASON FOR STUDY: pneumothorax COMPARISON: CT chest 04/21/2018, 03/24/2018 Chest films 04/21/2018, 04/22/2018 EXAM PARAMETERS: NUMBER OF VIEWS: One view. TECHNIQUE: Single frontal radiographic view of the chest acquired. RADIATION DOSE: NA LIMITATIONS: None. FINDINGS: LUNGS AND PLEURA: A right-sided chest tube is in place, no right-sided pneumothorax is scotty ntified. No right pleural effusion or acute infiltrates. On the left side, a large bore chest tube is present. There is left lateral pleural thickening and t race pleural fluid. No discrete left pneumothorax. There is patchy airspace disease at the left chava g base unchanged. MEDIASTINUM AND HILAR STRUCTURES: No masses. Contour normal. HEART AND VASCULAR STRUCTURES: Heart normal in size. Normal vasculature. BONES: No acute findings. HARDWARE: Right and left large bore chest tubes OTHER: No other significant finding. IMPRESSION: Right and left chest tubes in place. No pneumothorax. Persistent left lower chest pleural fluid/ pleural thickening. Persistent patchy left basilar airspa ce disease unchanged. TECHNICAL DOCUMENTATION: JOB ID: [id number] [employer]- All Rights Reserved Reading location - IP/workstation name: [facility]-REPLACED BY [email or web address]
--- NOTE | 2018-04-24 09:32 | PDOC PROGRESS REPORT ---
Subjective Subjective:: Patient has no complaints. Reason For Visit: PNEUMOTHORAX Patient remains in ICU, waiting for bed on the floor. Physical Exam Vital Signs: Temp Pulse Resp BP Pulse Ox 98.5 F 94 16 110/78 100 04/24/18 04:00 04/23/18 14:00 04/24/18 04:00 04/24/18 01:31 04/23/18 08:00 Intake & Output 04/23/18 04/24/18 04/25/18 06:59 06:59 06:59 Intake Total 1900 1600 Output Total 2100 4000 Balance -200 -2400 Weight 54.2 kg 51.8 kg General appearance: PRESENT: no acute distress Respiratory exam: PRESENT: other - This is examined in the bed. Left chest tube hooked to Heimlich valve and drainage and receptacle with minimal serous discharge; no evidence of air leak Right chest tube hooked to Pleur-evac suction, some serous drainage overnight, no air leak currently. Patient moving air bilaterally right greater than left; no evidence of subcutaneous emphysema Results Laboratory Results: 04/24/18 05:47 04/24/18 05:47 04/23/18 04/23/18 04/23/18 04:52 04:52 16:20 WBC RBC Hgb Hct MCV MCH MCHC RDW Plt Count Retic Count (auto) 2.35 Absolute Retic 0.063 Sodium Potassium Chloride Carbon Dioxide Anion Gap BUN Creatinine Est GFR ( Amer) Est GFR (Non-Af Amer) Glucose Calcium Magnesium Iron 49.8 TIBC 290 % Saturation 17 Ferritin 139.00 Vitamin B12 501.0 Folate 7.19 Blood Type A POSITIVE Antibody Screen NEGATIVE 04/24/18 04/24/18 05:47 05:47 WBC 11.4 H RBC 3.87 L Hgb 11.5 L D Hct 33.1 L MCV 86 MCH 29.7 MCHC 34.6 RDW 15.9 H Plt Count 562 H Retic Count (auto) Absolute Retic Sodium 137.7 Potassium 4.5 Chloride 95 L Carbon Dioxide 38 H Anion Gap 5 BUN 11 Creatinine 0.44 L Est GFR ( Amer) > 60 Est GFR (Non-Af Amer) > 60 Glucose 91 Calcium 9.4 Magnesium 2.0 Iron TIBC % Saturation Ferritin Vitamin B12 Folate Blood Type Antibody Screen 04/21/18 04/21/18 04/21/18 08:20 08:20 09:43 Creatine Kinase Cancelled CK-MB (CK-2) Cancelled 4.30 Troponin I Cancelled 0.024 04/21/18 09:43 Creatine Kinase 43 L CK-MB (CK-2) Troponin I Impressions: Chest CT 04/21/18 00:00 IMPRESSION: Severe emphysema. There are bilateral chest tubes in position with a tiny right pneumothorax. Trace right-sided pleural effusion. Left-sided chest tube within a small multiloculated hydropneumothorax with multifocal left basilar consolidation. No obvious mass or lymphadenopathy. Consider follow-up in 3 months to ensure complete resolution or stability of consolidations. Chest X-Ray 04/24/18 12:00 IMPRESSION: Right and left chest tubes in place. No pneumothorax. Persistent left lower chest pleural fluid/ pleural thickening. Persistent patchy left basilar airspace disease unchanged. Assessment & Plan - Diagnosis (1) Tension pneumothorax, spontaneous Is this a current diagnosis for this admission?: Yes Plan: Impression :patient now hospital day 3 status post right thoracostomy tube placed for pneumothorax, tension, clinically improved on suction, no evidence of air leak today; status post VATS procedure left chest 1 month ago with residual left chest tube and Heimlich valve ; Chest x-ray shows right lung expanded and left lung have a 5% expanded with left lower lobe atelectasis. Mutations: 1. Keep patient on suction another 24 hours. 2. May transfer out of ICU to monitored bed 3. We will discuss patient's management with the [facility] thoracic team regarding left thoracostomy tube management. (2) Left lower lobe pneumonia Qualifiers: Pneumonia type: due to unspecified organism Qualified Code(s): J18.1 - Lobar pneumonia, unspecified organism Is this a current diagnosis for this admission?: Yes (3) Loculated pleural effusion Is this a current diagnosis for this admission?: Yes
[2018-04-24] MEDS: DOCUSATE SODIUM 100 MG CAPSULE PO SCH ×2 (09:55→18:38)
[2018-04-24] MEDS: TIZANIDINE HCL 4 MG TABLET PO SCH ×3 (09:55→22:37)
[2018-04-24] MEDS: ACETAMINOPHEN 325 MG TABLET PO PRN (16:12)
--- NOTE | 2018-04-24 17:22 | PDOC PROGRESS REPORT ---
Subjective Progress Note for:: 04/24/18 Subjective:: Patient is evaluated in the ICU shortly after being seen by general surgery. He continues to have some minimal faint yellow colored drainage out of the last tube, and minimal blood colored drainage out of the right tube. He reports no acute changes in breathing. Overall seems to be improving. He does report 50 pounds of weight loss over a 2-year period of time. General surgery has agreed for the patient be transferred out of ICU. Patient reports no prior history of pneumothorax. Denies fever, chills, chest pain. Reason For Visit: PNEUMOTHORAX Physical Exam Vital Signs: Temp Pulse Resp BP Pulse Ox 98.1 F 87 16 136/90 H 95 04/24/18 16:00 04/24/18 16:00 04/24/18 16:00 04/24/18 16:00 04/24/18 16:00 Intake & Output 04/23/18 04/24/18 04/25/18 06:59 06:59 06:59 Intake Total 1900 1600 300 Output Total 2100 4000 Balance -200 -2400 300 Weight 54.2 kg 51.8 kg General appearance: PRESENT: no acute distress, cooperative, thin Head exam: PRESENT: atraumatic, normocephalic Eye exam: PRESENT: conjunctiva pink, EOMI, PERRLA. ABSENT: scleral icterus Mouth exam: PRESENT: moist, tongue midline Respiratory exam: PRESENT: other - Decreased breath sounds right upper lobe. Decreased breath sounds left lobe. Cardiovascular exam: PRESENT: RRR, +S1, +S2 GI/Abdominal exam: PRESENT: normal bowel sounds, soft. ABSENT: distended, guarding, mass, organolmegaly, rebound, tenderness Extremities exam: PRESENT: other - No edema bilateral lower extremities. Neurological exam: PRESENT: alert, awake, oriented to person, oriented to place, oriented to time, oriented to situation, CN II-XII grossly intact. ABSENT: motor sensory deficit Psychiatric exam: PRESENT: appropriate affect, normal mood. ABSENT: homicidal ideation, suicidal ideation Results Laboratory Results: 04/24/18 05:47 04/24/18 05:47 04/23/18 04/24/18 04/24/18 16:20 05:47 05:47 WBC 11.4 H RBC 3.87 L Hgb 11.5 L D Hct 33.1 L MCV 86 MCH 29.7 MCHC 34.6 RDW 15.9 H Plt Count 562 H Sodium 137.7 Potassium 4.5 Chloride 95 L Carbon Dioxide 38 H Anion Gap 5 BUN 11 Creatinine 0.44 L Est GFR ( Amer) > 60 Est GFR (Non-Af Amer) > 60 Glucose 91 Calcium 9.4 Magnesium 2.0 Blood Type A POSITIVE Antibody Screen NEGATIVE 04/21/18 04/21/18 04/21/18 08:20 08:20 09:43 Creatine Kinase Cancelled CK-MB (CK-2) Cancelled 4.30 Troponin I Cancelled 0.024 04/21/18 09:43 Creatine Kinase 43 L CK-MB (CK-2) Troponin I Impressions: Chest CT 04/21/18 00:00 IMPRESSION: Severe emphysema. There are bilateral chest tubes in position with a tiny right pneumothorax. Trace right-sided pleural effusion. Left-sided chest tube within a small multiloculated hydropneumothorax with multifocal left basilar consolidation. No obvious mass or lymphadenopathy. Consider follow-up in 3 months to ensure complete resolution or stability of consolidations. Chest X-Ray 04/24/18 12:00 IMPRESSION: Right and left chest tubes in place. No pneumothorax. Persistent left lower chest pleural fluid/ pleural thickening. Persistent patchy left basilar airspace disease unchanged. Assessment & Plan - Diagnosis (1) COPD with exacerbation Is this a current diagnosis for this admission?: Yes (2) Tension pneumothorax, spontaneous Is this a current diagnosis for this admission?: Yes (3) Acute respiratory failure with hypoxia Is this a current diagnosis for this admission?: Yes - Time Time Spent with patient: 25-34 minutes Smoking Cessation Education: 3 to 10 minutes Medications reviewed and adjusted accordingly: Yes - Inpatient Certification Based on my medical assessment, after consideration of the patient's comorbidities, presenting symptoms, or acuity I expect that the services needed warrant INPATIENT care.: Yes I certify that my determination is in accordance with my understanding of Medicare's requirements for reasonable and necessary INPATIENT services [42 CFR 412.3e].: Yes - Plan Summary Plan Summary: 1. Pneumothorax. Right-sided. Status post day 3 of her right Thor discotomy tube. No evidence of leak. Status post VATS procedure on March 27 at [facility]. History of smoking. 3. 50 pound weight loss over the past 2 years. Start Remeron for sleep at 15 mg nightly. Should stimulate appetite some, if further appetite stimulation as needed then increase the dose up to 45 mg.
[2018-04-24] MEDS: MIRTAZAPINE 15 MG TABLET PO SCH (22:38)
[2018-04-25] MEDS: MEROPENEM 1 GM in NORMAL SALINE 50 ML IV SCH ×2 (01:57→09:40)
[2018-04-25] MEDS: MORPHINE SULFATE IR 15 MG TABLET PO PRN ×4 (02:21→17:17)
[2018-04-25 05:26] LABS: ABSOLUTE BASOPHILS # (AUTO) 0.1 10^3/uL (0.0-0.2); ABSOLUTE EOSINOPHILS # (AUTO) 0.5 10^3/uL (0.0-0.6); ABSOLUTE LYMPHOCYTES (AUTO) 2.9 10^3/uL (0.5-4.7); ABSOLUTE MONOCYTES (AUTO) 1.3 10^3/uL (0.1-1.4); ABSOLUTE NEUT (AUTO) 6.7 10^3/uL (1.7-8.2); BASOPHILS % (AUTO) 1.2 % (0-2); EOSINOPHILS % (AUTO) 4.1 % (0-6); HEMATOCRIT 34.6 % (37.9-51.0); HEMOGLOBIN 11.7 g/dL (13.5-17.0); LYMPHOCYTES % (AUTO) 24.9 % (13-45); MEAN CORPUSCULAR HEMOGLOBIN 29.3 pg (27.0-33.4); MEAN CORPUSCULAR HGB CONC 33.8 g/dL (32.0-36.0); MEAN CORPUSCULAR VOLUME 87 fl (80-97); MONOCYTES % (AUTO) 11.3 % (3-13); PLATELET COUNT 511 10^3/uL (150-450); RED BLOOD COUNT 3.98 10^6/uL (4.35-5.55); RED CELL DISTRIBUTION WIDTH 16.1 % (11.5-14.0); SEGMENTED NEUTROPHILS % (AUTO) 58.5 % (42-78); TOTAL CELLS COUNTED % (AUTO) 100 %; WHITE BLOOD COUNT 11.5 10^3/uL (4.0-10.5)
[2018-04-25] MEDS: VANCOMYCIN HCL 1,250 MG in DEXTROSE 5%-WATER 250 ML IV SCH ×2 (06:12→17:17)
[2018-04-25] MEDS: MORPHINE SULFATE SR 15 MG TABLET PO SCH ×3 (06:13→22:02)
[2018-04-25] MEDS: HEPARIN SOD (PORCINE) 5,000 UNIT/ML 1 ML SYRINGE SUBCUT SCH ×3 (06:13→22:02)
--- NOTE | 2018-04-25 08:19 | PDOC PROGRESS REPORT ---
Subjective Progress Note for:: 04/25/18 Reason For Visit: PNEUMOTHORAX Physical Exam Vital Signs: Temp Pulse Resp BP Pulse Ox 99.0 F 79 20 130/86 H 93 04/25/18 03:40 04/25/18 07:00 04/25/18 03:40 04/25/18 03:40 04/25/18 03:40 Intake & Output 04/24/18 04/25/18 04/26/18 06:59 06:59 06:59 Intake Total 1600 850 Output Total 4000 1841 Balance -2400 -991 Weight 51.8 kg 52 kg General appearance: PRESENT: cooperative, disheveled Respiratory exam: PRESENT: chest wall tenderness, symmetrical, unlabored - clear bilat Results Laboratory Results: 04/25/18 04:26 04/24/18 05:47 04/23/18 04/25/18 16:20 04:26 WBC 11.5 H RBC 3.98 L Hgb 11.7 L Hct 34.6 L MCV 87 MCH 29.3 MCHC 33.8 RDW 16.1 H Plt Count 511 H Seg Neutrophils % 58.5 Lymphocytes % 24.9 Monocytes % 11.3 Eosinophils % 4.1 Basophils % 1.2 Absolute Neutrophils 6.7 Absolute Lymphocytes 2.9 Absolute Monocytes 1.3 Absolute Eosinophils 0.5 Absolute Basophils 0.1 Antibody Screen NEGATIVE 04/21/18 04/21/18 04/21/18 08:20 08:20 09:43 Creatine Kinase Cancelled CK-MB (CK-2) Cancelled 4.30 Troponin I Cancelled 0.024 04/21/18 09:43 Creatine Kinase 43 L CK-MB (CK-2) Troponin I Impressions: Chest CT 04/21/18 00:00 IMPRESSION: Severe emphysema. There are bilateral chest tubes in position with a tiny right pneumothorax. Trace right-sided pleural effusion. Left-sided chest tube within a small multiloculated hydropneumothorax with multifocal left basilar consolidation. No obvious mass or lymphadenopathy. Consider follow-up in 3 months to ensure complete resolution or stability of consolidations. Chest X-Ray 04/24/18 12:00 IMPRESSION: Right and left chest tubes in place. No pneumothorax. Persistent left lower chest pleural fluid/ pleural thickening. Persistent patchy left basilar airspace disease unchanged. Assessment & Plan - Diagnosis (1) COPD with exacerbation Is this a current diagnosis for this admission?: Yes (2) Tension pneumothorax, spontaneous Is this a current diagnosis for this admission?: Yes (3) Loculated pleural effusion Is this a current diagnosis for this admission?: Yes - Plan Summary Plan Summary: currently, the last 2 cxr's show no significant ptx on the right pt now on suction will obtain cxr this am, if stable will place ct on waterseal as for the left ct, spoke with Dr Herring this am he requests to start backing out the left empyema drain about 1 or 2 inches and he will see pt back in 2-3 wks.
[2018-04-25] MEDS: DOCUSATE SODIUM 100 MG CAPSULE PO SCH ×2 (09:40→17:17)
[2018-04-25] MEDS: TIZANIDINE HCL 4 MG TABLET PO SCH ×3 (09:40→22:03)
[2018-04-25] MEDS: ACETAMINOPHEN 325 MG TABLET PO PRN (09:40)
[2018-04-25] MEDS: CEFEPIME 2 GM/D5W RTU 2 GM/50 ML RTUPB IV SCH ×2 (10:51→22:02)
--- NOTE | 2018-04-25 11:46 | RADIOLOGY REPORT (SQ) ---
EXAM DESCRIPTION: CHEST SINGLE VIEW COMPLETED DATE/TIME: 04/25/2018 11:15 am REASON FOR STUDY: check progress of pneumo COMPARISON: Previous day NUMBER OF VIEWS: One view. TECHNIQUE: Single frontal radiographic image of the chest acquired. LIMITATIONS: None. FINDINGS: LUNGS AND PLEURA: Stable appearance. Pleural and parenchymal density left costophrenic an gle unchanged. No pneumothorax. MEDIASTINUM AND HEART: Stable heart size and mediastinal structures. SUPPORT DEVICES: Appropriate location without change. BONY STRUCTURES: No acute findings. HARDWARE: None. OTHER: No other significant finding. IMPRESSION: No significant change. No pneumothorax. Reading location - IP/workstation name: [email or web address]
--- NOTE | 2018-04-25 17:58 | RADIOLOGY REPORT (SQ) ---
EXAM DESCRIPTION: CHEST SINGLE VIEW COMPLETED DATE/TIME: 04/25/2018 5:40 pm REASON FOR STUDY: EVALUATE PNEUMO COMPARISON: 04/25/2018 04/24/2018 EXAM PARAMETERS: NUMBER OF VIEWS: One view. TECHNIQUE: Single frontal radiographic view of the chest acquired. RADIATION DOSE: NA LIMITATIONS: None. FINDINGS: LUNGS AND PLEURA: No residual pneumothorax. Persistent pleural thickening and lower lobe opacification on the left. MEDIASTINUM AND HILAR STRUCTURES: No masses. Contour normal. HEART AND VASCULAR STRUCTURES: Heart normal in size. Normal vasculature. BONES: No acute findings. HARDWARE: Bilateral thoracotomy tubes. OTHER: No other significant finding. IMPRESSION: No residual pneumothorax. Left lower lobe findings are unchanged. TECHNICAL DOCUMENTATION: JOB ID: [id number] [employer]- All Rights Reserved Reading location - IP/workstation name: [email or web address]
--- NOTE | 2018-04-25 18:09 | PDOC PROGRESS REPORT ---
Subjective Progress Note for:: 04/25/18 Subjective:: This is a 52 years old male patient admitted for shortness of breath due to acute left pneumothorax and he is status post chest tube insertion and drainage. Today chest x-ray reported as resolved left pneumothorax and the chest tube has been removed. Patient has also right pleural effusion due to empyema and he is status post Pleurx placement and drainage. The Pleurx inserted at [facility]. This morning I seen patient resting in bed comfortably still complains of some back pain. Reason For Visit: PNEUMOTHORAX Physical Exam Vital Signs: Temp Pulse Resp BP Pulse Ox 98.0 F 84 14 104/65 94 04/25/18 11:42 04/25/18 14:00 04/25/18 11:42 04/25/18 11:42 04/25/18 11:42 Intake & Output 04/24/18 04/25/18 04/26/18 06:59 06:59 06:59 Intake Total 1600 850 350 Output Total 4000 1841 Balance -2400 -991 350 Weight 51.8 kg 52 kg General appearance: PRESENT: no acute distress Head exam: PRESENT: atraumatic Eye exam: PRESENT: conjunctiva pink Neck exam: ABSENT: carotid bruit, JVD, lymphadenopathy, thyromegaly Respiratory exam: PRESENT: crackles, decreased breath sounds - Right lung Cardiovascular exam: PRESENT: RRR. ABSENT: diastolic murmur, rubs, systolic murmur GI/Abdominal exam: PRESENT: normal bowel sounds, soft. ABSENT: distended, guarding, mass, organolmegaly, rebound, tenderness Neurological exam: PRESENT: alert, awake, oriented to time, oriented to situation Results Laboratory Results: 04/25/18 04:26 04/24/18 05:47 04/25/18 04:26 WBC 11.5 H RBC 3.98 L Hgb 11.7 L Hct 34.6 L MCV 87 MCH 29.3 MCHC 33.8 RDW 16.1 H Plt Count 511 H Seg Neutrophils % 58.5 Lymphocytes % 24.9 Monocytes % 11.3 Eosinophils % 4.1 Basophils % 1.2 Absolute Neutrophils 6.7 Absolute Lymphocytes 2.9 Absolute Monocytes 1.3 Absolute Eosinophils 0.5 Absolute Basophils 0.1 04/21/18 04/21/18 04/21/18 08:20 08:20 09:43 Creatine Kinase Cancelled CK-MB (CK-2) Cancelled 4.30 Troponin I Cancelled 0.024 04/21/18 09:43 Creatine Kinase 43 L CK-MB (CK-2) Troponin I Impressions: Chest CT 04/21/18 00:00 IMPRESSION: Severe emphysema. There are bilateral chest tubes in position with a tiny right pneumothorax. Trace right-sided pleural effusion. Left-sided chest tube within a small multiloculated hydropneumothorax with multifocal left basilar consolidation. No obvious mass or lymphadenopathy. Consider follow-up in 3 months to ensure complete resolution or stability of consolidations. Chest X-Ray 04/25/18 17:00 IMPRESSION: No residual pneumothorax. Left lower lobe findings are unchanged. Assessment & Plan - Diagnosis (1) Tension pneumothorax, spontaneous Is this a current diagnosis for this admission?: Yes Plan: Left pneumothorax has resolved (2) Right pleural effusion due to empyema Is this a current diagnosis for this admission?: Yes Plan: Status post Pleurx placement (3) Acute hypoxemic respiratory failure Is this a current diagnosis for this admission?: Yes Plan: Has been resolving (4) Moderate to severe malnutrition Is this a current diagnosis for this admission?: Yes Plan: Nutritional supplement.
[2018-04-25] MEDS: MIRTAZAPINE 15 MG TABLET PO SCH (22:02)
[2018-04-26] MEDS: MORPHINE SULFATE IR 15 MG TABLET PO PRN ×5 (01:08→20:11)
[2018-04-26] MEDS: MORPHINE SULFATE SR 15 MG TABLET PO SCH ×3 (05:52→21:15)
[2018-04-26] MEDS: HEPARIN SOD (PORCINE) 5,000 UNIT/ML 1 ML SYRINGE SUBCUT SCH ×3 (05:52→21:06)
[2018-04-26] MEDS: VANCOMYCIN HCL 1,250 MG in DEXTROSE 5%-WATER 250 ML IV SCH (05:53)
[2018-04-26 06:37] LABS: VANCOMYCIN,TROUGH 12.2 ug/mL (5.0-20.0)
--- NOTE | 2018-04-26 09:16 | RADIOLOGY REPORT (SQ) ---
EXAM DESCRIPTION: CHEST SINGLE VIEW COMPLETED DATE/TIME: 04/26/2018 8:55 am REASON FOR STUDY: ptx COMPARISON: 04/25/2018. FINDINGS: Single-view chest AP portable upright at approximately 0821 hours. Left chest tube remains in place. Right chest tube remains in place. Persistent pleuroparenchymal changes in the left base, nonprogressive. Hyperinflated otherwise, COPD. No pneumothorax. Stable chest. TECHNICAL DOCUMENTATION: JOB ID: [id number] Reading location - IP/workstation name: [email or web address]
[2018-04-26] MEDS: TIZANIDINE HCL 4 MG TABLET PO SCH ×3 (09:51→21:07)
[2018-04-26] MEDS: DOCUSATE SODIUM 100 MG CAPSULE PO SCH ×2 (09:51→17:28)
[2018-04-26] MEDS: CEFEPIME 2 GM/D5W RTU 2 GM/50 ML RTUPB IV SCH ×2 (09:51→21:06)
--- NOTE | 2018-04-26 15:39 | PDOC PROGRESS REPORT ---
Subjective Progress Note for:: 04/26/18 Subjective:: no c/o, no SOB Reason For Visit: PNEUMOTHORAX Physical Exam Vital Signs: Temp Pulse Resp BP Pulse Ox 97.9 F 104 H 20 116/66 95 04/26/18 11:54 04/26/18 14:00 04/26/18 11:54 04/26/18 11:54 04/26/18 11:54 Intake & Output 04/25/18 04/26/18 04/27/18 06:59 06:59 06:59 Intake Total 850 1819 300 Output Total 1841 1671 Balance -991 148 300 Weight 52 kg 51.4 kg Respiratory exam: PRESENT: other - Right chest: water seal chest tube in place; Left chest= chest tube connected to Heilmich valve Results Laboratory Results: 04/25/18 04:26 04/26/18 05:43 04/26/18 05:43 Creatinine 0.36 L Est GFR ( Amer) > 60 Est GFR (Non-Af Amer) > 60 04/21/18 15:07 Blood Blood Culture - Final NO GROWTH IN 5 DAYS 04/21/18 13:00 Blood Blood Culture - Final NO GROWTH IN 5 DAYS 04/21/18 04/21/18 04/21/18 08:20 08:20 09:43 Creatine Kinase Cancelled CK-MB (CK-2) Cancelled 4.30 Troponin I Cancelled 0.024 04/21/18 09:43 Creatine Kinase 43 L CK-MB (CK-2) Troponin I Impressions: Chest CT 04/21/18 00:00 IMPRESSION: Severe emphysema. There are bilateral chest tubes in position with a tiny right pneumothorax. Trace right-sided pleural effusion. Left-sided chest tube within a small multiloculated hydropneumothorax with multifocal left basilar consolidation. No obvious mass or lymphadenopathy. Consider follow-up in 3 months to ensure complete resolution or stability of consolidations. Assessment & Plan - Diagnosis (1) Tension pneumothorax, spontaneous Is this a current diagnosis for this admission?: Yes (2) Left lower lobe pneumonia Qualifiers: Pneumonia type: due to unspecified organism Qualified Code(s): J18.1 - Lobar pneumonia, unspecified organism Is this a current diagnosis for this admission?: Yes (3) Loculated pleural effusion Is this a current diagnosis for this admission?: Yes - Plan Summary Plan Summary: A/ Right side pneumothorax resoved Left empyema Right chest tube on water seal since yesterday morning Chest Xray last night and this morning demonstrated no right recurrent pneumothorax Continue presence of left pleural effusion P/ remove right chest tube today Obtain Chest-Xray 2 hours after removal If no recurrent right pneumothorax is identified, patient can be discharged to home tonight
--- NOTE | 2018-04-26 16:58 | PDOC PROGRESS REPORT ---
Subjective Progress Note for:: 04/26/18 Subjective:: Seen patient resting in bed. He does not have new complaints. His telemetry shows sinus tachycardia most probably physiologic. Reason For Visit: PNEUMOTHORAX Physical Exam Vital Signs: Temp Pulse Resp BP Pulse Ox 97.9 F 104 H 20 116/66 95 04/26/18 11:54 04/26/18 14:00 04/26/18 11:54 04/26/18 11:54 04/26/18 11:54 Intake & Output 04/25/18 04/26/18 04/27/18 06:59 06:59 06:59 Intake Total 850 1819 300 Output Total 1841 1671 Balance -991 148 300 Weight 52 kg 51.4 kg General appearance: PRESENT: no acute distress Head exam: PRESENT: atraumatic Eye exam: PRESENT: conjunctiva pink Neck exam: ABSENT: carotid bruit, JVD, lymphadenopathy, thyromegaly Respiratory exam: PRESENT: crackles, rhonchi Cardiovascular exam: PRESENT: tachycardia Neurological exam: PRESENT: alert, awake, oriented to time, oriented to situation Results Laboratory Results: 04/25/18 04:26 04/26/18 05:43 04/26/18 05:43 Creatinine 0.36 L Est GFR ( Amer) > 60 Est GFR (Non-Af Amer) > 60 04/21/18 15:07 Blood Blood Culture - Final NO GROWTH IN 5 DAYS 04/21/18 13:00 Blood Blood Culture - Final NO GROWTH IN 5 DAYS 04/21/18 04/21/18 04/21/18 08:20 08:20 09:43 Creatine Kinase Cancelled CK-MB (CK-2) Cancelled 4.30 Troponin I Cancelled 0.024 04/21/18 09:43 Creatine Kinase 43 L CK-MB (CK-2) Troponin I Impressions: Chest CT 04/21/18 00:00 IMPRESSION: Severe emphysema. There are bilateral chest tubes in position with a tiny right pneumothorax. Trace right-sided pleural effusion. Left-sided chest tube within a small multiloculated hydropneumothorax with multifocal left basilar consolidation. No obvious mass or lymphadenopathy. Consider follow-up in 3 months to ensure complete resolution or stability of consolidations. Assessment & Plan - Diagnosis (1) Tension pneumothorax, spontaneous Is this a current diagnosis for this admission?: Yes Plan: Left pneumothorax has resolved (2) Right pleural effusion due to empyema Is this a current diagnosis for this admission?: Yes Plan: Status post Pleurx placement (3) Acute hypoxemic respiratory failure Is this a current diagnosis for this admission?: Yes Plan: Has been resolving (4) Moderate to severe malnutrition Is this a current diagnosis for this admission?: Yes Plan: Nutritional supplement.
[2018-04-26] MEDS: VANCOMYCIN HCL 1,500 MG in DEXTROSE 5%-WATER 250 ML IV SCH (18:03)
--- NOTE | 2018-04-26 18:14 | RADIOLOGY REPORT (SQ) ---
EXAM DESCRIPTION: CHEST 2 VIEWS COMPLETED DATE/TIME: 04/26/2018 5:57 pm REASON FOR STUDY: chest tube removal COMPARISON: 04/26/2018 EXAM PARAMETERS: NUMBER OF VIEWS: two views TECHNIQUE: Digital Frontal and Lateral radiographic views of the chest acquired. RADIATION DOSE: NA LIMITATIONS: none FINDINGS: LUNGS AND PLEURA: There is no change in the appearance of the lungs. There is still patch y opacification on the left. MEDIASTINUM AND HILAR STRUCTURES: No masses or contour abnormalities. HEART AND VASCULAR STRUCTURES: Heart normal size. No evidence for failure. BONES: No acute findings. HARDWARE: Thoracotomy tube in place on the left. OTHER: No other significant finding. IMPRESSION: No significant interval change. No pneumothorax. TECHNICAL DOCUMENTATION: JOB ID: [id number] [employer]- All Rights Reserved Reading location - IP/workstation name: [email or web address]
[2018-04-26] MEDS: MIRTAZAPINE 15 MG TABLET PO SCH (21:06)
[2018-04-27] MEDS: MORPHINE SULFATE IR 15 MG TABLET PO PRN ×3 (03:15→16:18)
[2018-04-27] MEDS: MORPHINE SULFATE SR 15 MG TABLET PO SCH ×2 (05:24→13:38)
[2018-04-27] MEDS: VANCOMYCIN HCL 1,500 MG in DEXTROSE 5%-WATER 250 ML IV SCH (05:24)
[2018-04-27] MEDS: HEPARIN SOD (PORCINE) 5,000 UNIT/ML 1 ML SYRINGE SUBCUT SCH ×2 (05:24→13:38)
--- NOTE | 2018-04-27 08:25 | Progress Note ---
Provider Note Provider Note: Patient seen and evaluated; Right Chest tube removed yesterday; follow up Chest Xray negative after chest tube removal. Patient can be discharged to home today, see orders from yesterday.
--- NOTE | 2018-04-27 08:27 | PDOC DISCHARGE SUMMARY ---
General - Admit/Disc Date/PCP Admission Date/Primary Care Provider: 04/21/18 11:22 Discharge Date: 04/27/18 - Discharge Diagnosis (1) Tension pneumothorax, spontaneous Is this a current diagnosis for this admission?: Yes (2) Right pleural effusion due to empyema Is this a current diagnosis for this admission?: Yes (3) Acute hypoxemic respiratory failure Is this a current diagnosis for this admission?: Yes (4) Moderate to severe malnutrition Is this a current diagnosis for this admission?: Yes - Additional Information Resuscitation Status: Full Code Home Medications: Albuterol Sulfate [Proair HFA Inhalation Aerosol 8.5 gm MDI] 2 puff IH QID 04/21/18 Diclofenac Sodium [Voltaren] 4 gm TOP QID 04/21/18 Gabapentin [Neurontin 300 mg Capsule] 300 mg PO Q8 04/21/18 Morphine Sulfate [Ms-Contin Sr 15 mg Tablet] 15 mg PO Q8 04/21/18 Oxycodone HCl/Acetaminophen [Percocet 5-325 mg Tablet] 1 tab PO Q4HP PRN 04/11 04/29 Tizanidine HCl [Zanaflex 4 mg Tablet] 2 mg PO BID 04/21/18 Tizanidine HCl [Zanaflex 4 mg Tablet] 4 mg PO QHS 04/21/18 History of Present Illness History of Present Illness: JUDY ZAVALA is a 52 year old male 52-year-old male with a history of pneum othorax with recurrent pleural effusion presents to the ER with respiratory distress. EMS found the patient to be have sats in the 80s. Patient states he has been having worsening shortness of breath over the last 4 days. The patient was seen here last month and was found to have a pneumothorax. He was transferred to [facility]. The patient has recurrent Pleurx catheter/chest tube draining. Patient denies any fever or chills. Denies nausea vomiting denies calf pain or tenderness. Hospital Course Hospital Course: This is a 52 years old male patient admitted for shortness of breath due to acute left pneumothorax and he is status post chest tube insertion and drainage. Today chest x-ray reported as resolved left pneumothorax and the chest tube has been removed. Patient has also right pleural effusion due to empyema and he is status post Pleurx placement and drainage. The Pleurx inserted at [facility]. He has upcoming appointment in 3 weeks at [facility]. Patient reevaluated by Dr. Centeno and cleared him for discharge and follow-up with him in 2 weeks at surgical clinic. This morning I seen kathy ent sitting at the bedside. He is also saturation dropped to 74 and he was put on 3 L of oxygen and his oxygen bumped up to 91. Patient qualify for home oxygen therapy. Otherwise his vital signs and labs are within normal limits and patient is stable enough to be discharged today. I will continue his home medications. Physical Exam Vital Signs: Temp Pulse Resp BP Pulse Ox 98.8 F 125 H 16 134/84 H 82 L 04/27/18 03:30 04/27/18 07:00 04/27/18 03:30 04/27/18 03:30 04/27/18 03:30 Intake & Output 04/26/18 04/27/18 04/28/18 06:59 06:59 06:59 Intake Total 1819 1609 Output Total 1671 2757 Balance 148 -1148 Weight 51.4 kg 52.2 kg General appearance: PRESENT: no acute distress Eye exam: PRESENT: conjunctiva pink Respiratory exam: PRESENT: crackles, decreased breath sounds Cardiovascular exam: PRESENT: RRR. ABSENT: diastolic murmur, rubs, systolic murmur GI/Abdominal exam: PRESENT: normal bowel sounds, soft. ABSENT: distended, guarding, mass, organolmegaly, rebound, tenderness Neurological exam: PRESENT: alert, awake, oriented to time, oriented to situation Results Laboratory Results: 04/25/18 04:26 04/26/18 05:43 04/21/18 15:07 Blood Blood Culture - Final NO GROWTH IN 5 DAYS 04/21/18 13:00 Blood Blood Culture - Final NO GROWTH IN 5 DAYS 04/21/18 04/21/18 04/21/18 08:20 08:20 09:43 Creatine Kinase Cancelled CK-MB (CK-2) Cancelled 4.30 Troponin I Cancelled 0.024 04/21/18 09:43 Creatine Kinase 43 L CK-MB (CK-2) Troponin I Impressions: Chest CT 04/21/18 00:00 IMPRESSION: Severe emphysema. There are bilateral chest tubes in position with a tiny right pneumothorax. Trace right-sided pleural effusion. Left-sided chest tube within a small multiloculated hydropneumothorax with multifocal left basilar consolidation. No obvious mass or lymphadenopathy. Consider follow-up in 3 months to ensure complete resolution or stability of consolidations. Chest X-Ray 04/26/18 17:40 IMPRESSION: No significant interval change. No pneumothorax. Qualifiers - * PATIENT BEING DISCHARGED WITH ANY OF THE FOLLOWING DIAGNOSIS: No
[2018-04-27] MEDS: CEFEPIME 2 GM/D5W RTU 2 GM/50 ML RTUPB IV SCH (09:08)
[2018-04-27] MEDS: TIZANIDINE HCL 4 MG TABLET PO SCH (09:15)
[2018-04-27] MEDS: DOCUSATE SODIUM 100 MG CAPSULE PO SCH (09:16)
[2018-04-27 17:30] VITALS: BP 118/76
== END 2018-04-27 19:20 | disposition home or self-care (01) | DRG 199 ==
LOC: ER 08:13 → EH 11:22 → ICU 15:42 → 3N 04-24 17:33
PROVIDERS: ADMIT Hospitalist; ATTEND Hospitalist
PROC: 0W9930Z Drainage of Right Pleural Cavity with Drainage Device, Percutaneous Approach (ICD-10-PCS; principal; 2018-04-21)
PROC: 30233N1 Transfusion of Nonautologous Red Blood Cells into Peripheral Vein, Percutaneous Approach (ICD-10-PCS; 2018-04-23)
DX: J93.0 Spontaneous tension pneumothorax (principal); J96.01 Acute respiratory failure with hypoxia; J86.9 Pyothorax without fistula; F11.20 Opioid dependence, uncomplicated; Z68.1 Body mass index [BMI] 19.9 or less, adult; J91.8 Pleural effusion in other conditions classified elsewhere; E44.0 Moderate protein-calorie malnutrition; D64.9 Anemia, unspecified; J43.9 Emphysema, unspecified; G62.9 Polyneuropathy, unspecified; Z97.8 Presence of other specified devices; Z87.891 Personal history of nicotine dependence
CPT/HCPCS: 36415; 36430; 71045; 71046; 71260; 80048; 80053; 80202; 82550; 82553; 82565; 82607; 82728; 82746; 83540; 83550; 83735; 84484; 85025; 85027; 85045; 85610; 86850; 86900; 86901; 86920; 87040; 88112; 88305; 96365; 96375; 99291; J0690; J0692; J1644; J1940; J2185; J2250; J2270; J3370; J3490; J7060; J7620; P9016

== ENCOUNTER → 2018-09-02 | Outpatient (CLI) | payer OTHER ==
--- NOTE | 2018-09-02 13:04 | RADIOLOGY REPORT (SQ) ---
EXAM DESCRIPTION: CHEST PA/LATERAL COMPLETED DATE/TIME: 09/02/2018 10:34 am REASON FOR STUDY: J90, PLEURAL EFFUSION COMPARISON: None. EXAM PARAMETERS: NUMBER OF VIEWS: two views TECHNIQUE: Digital Frontal and Lateral radiographic views of the chest acquired. RADIATION DOSE: NA LIMITATIONS: none FINDINGS: LUNGS AND PLEURA: Hyperinflation of the lungs consistent with COPD. Chronic bilateral ple uroparenchymal changes. Fibronodular scarring in the apices with bilateral apical pleural thickening . Chronic blunting of left costophrenic angle consistent with left pleural thickening. MEDIASTINUM AND HILAR STRUCTURES: No masses or contour abnormalities. HEART AND VASCULAR STRUCTURES: Heart normal size. No evidence for failure. BONES: No acute findings. HARDWARE: None in the chest. OTHER: Surgical clips overlying left lung base. Chronic bilateral pleuroparenchymal changes IMPRESSION: COPD with chronic bilateral pleuroparenchymal changes and left basilar pleural thickenin g. TECHNICAL DOCUMENTATION: JOB ID: [id number] 2010 [employer]- All Rights Reserved Reading location - IP/workstation name: [email or web address]
== END ==
LOC: OD 09:58
PROVIDERS: ATTEND Internal Medicine Pulmonary Disease
DX: J90 Pleural effusion, not elsewhere classified (principal); J44.9 Chronic obstructive pulmonary disease, unspecified
CPT/HCPCS: 71046

== ENCOUNTER → 2019-09-04 | Outpatient (CLI) | payer MEDICAID ==
--- NOTE | 2019-09-04 14:25 | RADIOLOGY REPORT (SQ) ---
EXAM DESCRIPTION: CHEST PA/LATERAL IMAGES COMPLETED DATE/TIME: 09/04/2019 2:06 pm REASON FOR STUDY: CHR OBSTRUCTIVE PULMON DISEASE WITH (ACUTE) LOWER RESP INFCT COMPARISON: CT of the chest with contrast from 04/21/2018. EXAM PARAMETERS: NUMBER OF VIEWS: Two views. TECHNIQUE: PA and lateral views of the chest were obtained. RADIATION DOSE: NA. LIMITATIONS: None. FINDINGS: LUNGS AND PLEURA: Upper lobe predominant emphysema with biapical scarring. There is re- d emonstration of metallic densities that project within the lingula. There is no acute consolidation, pleural effusion or pneumothorax. MEDIASTINUM AND HILAR STRUCTURES: No mediastinal or hilar contour abnormality. HEART AND VASCULAR STRUCTURES: The cardiac silhouette and pulmonary vasculature are within normal galarza its. BONES: No acute findings. HARDWARE: None in the chest. OTHER: No other finding. IMPRESSION: COPD without a superimposed acute cardiopulmonary process. TECHNICAL DOCUMENTATION: JOB ID: [id number] 2010 [employer]- All Rights Reserved Reading location - IP/workstation name: [email or web address]
== END ==
LOC: OD 13:50
PROVIDERS: ATTEND Internal Medicine
DX: J43.8 Other emphysema (principal)
CPT/HCPCS: 71046